=== PATIENT | female | born 1960 | race Caucasian/White ===

== ENCOUNTER → 2017-03-23 13:28 | Outpatient (CLI) | payer OTHER, SELFPAY ==
--- NOTE | 2017-03-23 13:32 | MM_ITS ---
MM Dig SC mamm implant BI CAD CAD Screening COMPARISON: Digital outside mammograms 01/03/2015 and 03/18/2016 from [place], [place] INDICATION: There is no personal or family history of breast cancer. TECHNIQUE: Standard CC and MLO images were obtained. R2 CAD reviewed. FINDINGS: Standard MLO and CC views were obtained along with Fredrick views. The bilateral breast implants are again noted with no evidence of leakage. Prominent diffuse fibroglandular densities are seen in the [place] breast tissue bilaterally. There is arterial calcification in each breast. There is a stable benign-appearing density deep within the right breast. There is no suspicious lesion and there are no suspicious microcalcifications. IMPRESSION: Stable exam with no suspicious lesion seen BI-RADS Category: 2 Benign Finding(s) RECOMMENDED FOLLOW-UP: 1YR - 1 YEAR FOLLOW-UP (A letter has been sent to the patient regarding results of the study.)
== END ==
PROVIDERS: PCP Family Medicine; Visit Provider Nurse Practitioner Obstetrics & Gynecology
DX: Z12.31 Encounter for screening mammogram for malignant neoplasm of breast (principal)
CPT/HCPCS: 77067

== ENCOUNTER → 2017-05-25 08:56 | Outpatient (CLI) | payer OTHER, SELFPAY ==
--- NOTE | 2017-05-25 08:58 | XR_ITS ---
Left foot Weightbearing Foot 3 Views HISTORY: Medial foot pain ORDERING PHYSICIAN: Cecille Crawford DPM PATIENT AGE: 57 years COMPARISON: None FINDINGS: There are minimal hypertrophic changes along the dorsal aspect of the foot. There is a small calcaneal spur at 8 mm. There are mild hypertrophic changes at the base and lateral aspect of the first metatarsal. No fracture or dislocation. No lytic or blastic change. There is normal mineralization.. The joint spaces are well-preserved. No erosive changes are evident. IMPRESSION: Mild degenerative changes with spurring as described above otherwise negative
--- NOTE | 2017-05-25 08:58 | XR_ITS ---
Right foot: Weightbearing Foot 3 Views HISTORY: Pain ORDERING PHYSICIAN: Cecille Crawford DPM PATIENT AGE: 57 years COMPARISON: None FINDINGS: Normal alignment. Mild hypertrophic changes are present at the first metatarsotarsal joint and second metatarsal portable joint as well as along the dorsal aspect of the navicular and cuneiforms. No fracture or dislocation. No lytic or blastic change. There is a small calcaneal spur at 8 mm. 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
== END ==
PROVIDERS: Visit Provider Podiatrist
DX: M79.673 Pain in unspecified foot (principal)
CPT/HCPCS: 73630

== ENCOUNTER → 2018-04-14 09:52 | Outpatient (CLI) | payer OTHER, SELFPAY ==
--- NOTE | 2018-04-14 09:55 | MM_ITS ---
MM Dig SC mamm implant BI CAD ORDERING PHYSICIAN : Cesar Hernández MD PATIENT AGE: 58 years GENDER: Female COMPARISON: Outside mammogram studies from [facility] dated November 2013, March 2017, 2014 INDICATION: ITS.REASON: routine sc mammogram bilateral breast implants. No new complaints. No hormones. Noncontributory family history. .: TECHNIQUE: Todd technique utilized. CC & MLO images were obtained of the breast tissue overlying implant, as well as a second set of images including the breast implant. Mammography is inherently limited due to the implants is a could obscure areas of breast R2 CAD reviewed. images were obtained. R2 CAD reviewed. FINDINGS: Moderate density breast. Moderate fibroglandular elements most evident distributed towards upper-outer quadrant Deep bilateral breast implants do somewhat inherently decreased sensitivity of mammography but we see no no significant new findings. When compared to multiple previous studies. No suspicious calcifications . Minor areas of density seen today were seen previously and appears stable on from multiple years RIGHT BREAST:No significant new findings. Stable LEFT BREAST: Small 5 mm round density is again seen at the lateral left breast unchanged since 2017 at 2018 outside study. This density is smaller than was seen in 2014 IMPRESSION: ...... Stable bilateral mammogram No new areas of significant concern A stable round 5 mm area density at the lateral left breast.-Compatible with benign cyst which is slightly smaller today vs on a 2014; & stable since 2018 and 2017 BI-RADS Category: 2 Benign Finding(s) RECOMMENDED FOLLOW-UP: 1YR 1 YEAR FOLLOW-UP... (A letter has been sent to the patient regarding results of the study.)
== END ==
PROVIDERS: PCP Nurse Practitioner Obstetrics & Gynecology; Visit Provider Nurse Practitioner Obstetrics & Gynecology
DX: Z12.31 Encounter for screening mammogram for malignant neoplasm of breast (principal)
CPT/HCPCS: 77067

== ENCOUNTER → 2018-07-21 17:55 | Outpatient (CLI) | payer OTHER, SELFPAY | PROVIDERS: Visit Provider Physician Assistant | DX: R30.0 Dysuria (principal) | CPT/HCPCS: 87086 ==

== ENCOUNTER → 2018-07-28 12:10 | Outpatient (CLI) | payer OTHER, SELFPAY ==
[2018-07-28 12:12] LABS: MANUAL DIFFERENTIAL MANUAL DIFFERENTIAL (MANUAL DIFF)
[2018-07-28 12:55] LABS: Basophils # 0.1 K/mm3 (0-0.2); Basophils % 0.9 % (0.1-2.0); Eosinophils # 0.2 K/mm3 (0.0-0.4); Eosinophils % 2.9 % (0.1-12.0); Hematocrit 45.4 % (37.0-47.0); Hemoglobin 14.1 g/dL (12.2-16.2); Lymphocytes # 2.3 K/mm3 (0.7-4.5); Mean Corpuscular Hemoglobin 27.5 pg (27.0-31.2); Mean Corpuscular Volume 88.7 fl (81-99); Monocytes # 0.5 K/mm3 (0.1-1.0); Monocytes % 7.6 % (1.7-9.3); Neutrophils % 50.6 % (37.0-80.0); Platelet Count 387 K/mm3 (142-424); Red Blood Count 5.12 M/mm3 (4.20-5.40); Red Cell Distribution Width 13.4 % (11.5-17.5)
[2018-07-28 13:23] LABS: Alanine Aminotransferase 29 U/L (12-78); Albumin Level 4.1 gm/dL (3.4-5.0); Albumin/Globulin Ratio 1.1 (1.1-1.8); Alkaline Phosphatase 100 U/L (46-116); Anion Gap 11.9 mEq/L (5-15); Aspartate Amino Transferase 22 U/L (15-37); Bilirubin,Total 0.4 mg/dL (0.2-1.0); Blood Urea Nitrogen 20 mg/dL (7-18); Calcium 9.3 mg/dL (8.5-10.1); Carbon Dioxide 29 mmol/L (21.0-32.0); Chloride 106 mmol/L (98-107); Creatinine,Serum 0.68 mg/dL (0.55-1.02); Estimated Glomerular Filt Rate 89 ml/min (>60); GFR (African American) 108 ML/MIN (>60); Globulin 3.6 gm/dl (1.3-3.2); Glucose 99 mg/dL (74-106); Potassium 4.9 mmoL/L (3.5-5.1); Sodium 142 mmol/L (136-145); Total Protein,Serum 7.7 gm/dL (6.4-8.2)
[2018-07-28 15:41] LABS: Eosinophils % 2 % (0-3); Lymphocytes % 36 % (10-50); Monocytes % 8 % (2-9); Neutrophils % 52 % (42-76); Platelet Estimate Normal; RBC Morphology Normal; Total Cells Counted 100
--- NOTE | 2018-07-28 21:00 | CT_ITS ---
CT abdomen pelvis wo/w con CLINICAL INDICATION: Lower abdominal pain with nausea, frequent urination, right flank pain with loss of appetite ITS.REASON: CT w w/o contrast- abdominal pelvic pain ORDERING PHYSICIAN: Addie Harris MD PATIENT AGE: 58 years COMPARISON: 09/22/2015 TECHNIQUE: Axial images obtained without and with contrast with sagittal and coronal reformats. All CT scans at the facility use one or more dose reduction, viz: automated exposure control, ma/kV adjustment per patient size (including targeted exams where dose is matched to indication, i.e. head), or iterative reconstruction technique. PROCEDURE: Oral Contrast: None IV Contrast: 75 mL's Optiray 350. FINDINGS: Lower thorax: Bilateral breast implants are present. There is a small hiatal hernia. There are a few small isodensity' s of the liver, 2 in the left hepatic lobe, one in the caudate lobe, one in the right hepatic lobe just anterior to the right hepatic vein and one in the central aspect of the liver medial to the caudate lobe. The largest areas in the caudate lobe and measures 1 cm. Other isodensity is a smaller. This may be due to cysts. Some of these were present on the previous study but very subtle due to the lack of contrast. The lesion in the caudate lobe was present on the previous exam and is not significantly changed. There are gallstones present. Punctate renal calculi on the left measuring up to 4 mm in the lower pole. There is a 4 mm stone in the distal one third of the right ureter at the pelvic inlet causing mild right-sided obstructive uropathy. The stone is a somewhat irregular contour and is several centimeters above the ureterovesical junction. Prior appendectomy. No intestinal obstruction or free air. There is a bilocular isodensity in the right pelvic region consistent with an ovarian cyst measuring 4 x 2.6 cm.. No cul-de-sac fluid. No focal inflammatory change of the pelvis. No acute bony findings. IMPRESSION: 1. There is a 4 mm somewhat irregular distal ureteral stone on the right is at the pelvic inlet with mild dilatation of the right ureter. 2. Left nephrolithiasis. 3. Cholelithiasis. 4. 4 cm bilocular right ovarian cyst. 5. Multiple small isodensity is of the liver which may be due to cysts and may be confirmed with follow-up.
== END ==
PROVIDERS: PCP Emergency Medicine; Visit Provider Obstetrics & Gynecology
DX: R10.2 Pelvic and perineal pain (principal); R10.9 Unspecified abdominal pain; R39.15 Urgency of urination
CPT/HCPCS: 36415; 74178; 80053; 85007; 85014; 85018; 85048; 85049; 87086; Q9967

== ENCOUNTER 2018-08-03 00:18 | Emergency (ER) | payer OTHER, SELFPAY ==
[2018-08-03 00:41] VITALS: BP 159/93; PULSE 88; RESP 20; TEMP 36.7; O2SAT 99; BMI 30.5
[2018-08-03 00:51] VITALS: BP 126/73; PULSE 80; RESP 12; O2SAT 85
[2018-08-03 00:53] VITALS: O2SAT 95
[2018-08-03 00:54] LABS: Microscopic, Urine URINE MICROSCOPIC (MICROSCOPIC)
[2018-08-03 00:58] LABS: Basophils % 0.3 % (0.1-2.0); Eosinophils # 0.1 K/mm3 (0.0-0.4); Eosinophils % 0.4 % (0.1-12.0); Hematocrit 41.3 % (37.0-47.0); Hemoglobin 12.8 g/dL (12.2-16.2); Lymphocytes # 2.1 K/mm3 (0.7-4.5); Lymphocytes % 16.6 % (10-50); Mean Corpuscular Hemoglobin 26.6 pg (27.0-31.2); Mean Corpuscular Volume 85.8 fl (81-99); Mean Platelet Volume 6.7 fl (7.4-10.4); Monocytes # 0.8 K/mm3 (0.1-1.0); Neutrophils # 9.8 K/mm3 (1.8-7.8); Neutrophils % 76.7 % (37.0-80.0); Platelet Count 399 K/mm3 (142-424); Red Blood Count 4.81 M/mm3 (4.20-5.40); Red Cell Distribution Width 13.3 % (11.5-17.5); White Blood Count 12.8 K/mm3 (4.8-10.8)
[2018-08-03 01:06] LABS: Alanine Aminotransferase 23 U/L (12-78); Albumin/Globulin Ratio 1.1 (1.1-1.8); Alkaline Phosphatase 88 U/L (46-116); Anion Gap 15.4 mEq/L (5-15); Aspartate Amino Transferase 20 U/L (15-37); Bilirubin,Total 0.4 mg/dL (0.2-1.0); Blood Urea Nitrogen 18 mg/dL (7-18); Carbon Dioxide 24 mmol/L (21.0-32.0); Chloride 104 mmol/L (98-107); Creatinine Clearance Estimated 88 mL/min (50-200); Creatinine,Serum 0.89 mg/dL (0.55-1.02); Estimated Glomerular Filt Rate 65 ml/min (>60); GFR (African American) 79 ML/MIN (>60); Globulin 3.7 gm/dl (1.3-3.2); Glucose 149 mg/dL (74-106); Potassium 3.4 mmoL/L (3.5-5.1); Sodium 140 mmol/L (136-145); Total Protein,Serum 7.7 gm/dL (6.4-8.2)
--- NOTE | 2018-08-03 01:12 | PC.NURSE ---
Report give to Russ Espino RN
[2018-08-03 01:13] LABS: Appearance,Urine CLEAR (Clear); Blood, Urine 3+ (Negative); Color,Urine YELLOW (Yellow); Glucose,Urine (UA) Negative (Negative); Ketones,Urine 3+ (Negative); Leukocyte Esterase,Urine TRACE (Negative); Nitrate,Urine Negative (Negative); PH,Urine 6.5 (5.0-8.5); Protein,Urine 2+ (Negative); Specific Gravity, Urine 1.025 (1.005-1.030)
[2018-08-03 01:20] LABS: Bilirubin,Urine Negative (Negative)
[2018-08-03 01:23] LABS: Bacteria,Urine 1+ /lpf; Hyaline Casts,Urine Occasional #/lpf (0); RBC,Urine 20-50 #/hpf (0-3); Squamous Epithelial Cell,Urine Occasional #/hpf (0-5)
[2018-08-03 01:58] VITALS: BP 121/72; PULSE 78; RESP 18; O2SAT 98
--- NOTE | 2018-08-03 03:24 | HMH.EDUROGF ---
ED Disposition Clinical Impression: Renal colic on right side Disposition: Home, Self-Care Condition on Discharge: Good Instructions: Kidney Stones -- Adult Additional Instructions: see urology as planned Prescriptions: Hydromorphone HCl [Dilaudid 2mg tablet] 2 mg PO Q8H #5 tab Referrals: Juan Hernandes MD [Primary Care Provider] - - Critical Care Critical Care Time: No Attestation: On 08/03/18, the high probability of a clinically significant, sudden or life threatening deterioration of the following system(s) required my full and direct attention, intervention and personal management. The time I documented below is in addition to time spent performing reported procedures but includes the following listed in this critical care notation. Medical Decision Making - Medical Records Medical records reviewed: Yes: I reviewed the patient's medical records. - Vicente Inquiry Pt receiving controlled substance: No Vital Signs: 08/03/18 00:41 08/03/18 00:51 08/03/18 00:53 Temperature 98.1 F Temperature Source Oral Pulse Rate [Right Brachial] 88 80 Respiratory Rate 20 12 Blood Pressure [Right Arm] 159/93 H 126/73 Blood Pressure Mean [Right Arm] 115 90 Blood Pressure Source [Right Arm] Automatic Cuff Automatic Cuff Blood Pressure Position [Right Arm] Sitting Sitting 02 Sat by Pulse Oximetry 99 85 L 95 Oxygen Delivery Method Room Air Room Air Nasal Cannula Oxygen Flow Rate (LPM) 2 08/03/18 01:58 Temperature Temperature Source Pulse Rate [Right Brachial] 78 Respiratory Rate 18 Blood Pressure [Right Arm] 121/72 Blood Pressure Mean [Right Arm] 88 Blood Pressure Source [Right Arm] Automatic Cuff Blood Pressure Position [Right Arm] Supine 02 Sat by Pulse Oximetry 98 Oxygen Delivery Method Room Air Oxygen Flow Rate (LPM) - Lab Data Lab results reviewed: Yes: I reviewed the patient's lab results. Lab Results 08/03/18 00:35: Urine Color Yellow, Urine Appearance Clear, Urine pH 6.5, Ur Specific [place] 1.025, Urine Protein 2+, Urine Glucose (UA) Negative, Urine Ketones 3+, Urine Blood 3+, Urine Nitrate Negative, Urine Bilirubin Negative, Urine Urobilinogen 1.0, Ur Leukocyte Esterase Trace, Urine RBC 20-50, Urine WBC 3-5, Ur Squamous Epith Cells Occasional, Urine Bacteria 1+, Hyaline Casts Occasional 08/03/18 00:35: WBC 12.8 H, RBC 4.81, Hgb 12.8, Hct 41.3, MCV 85.8, MCH 26.6 L, MCHC 31.0 L, RDW 13.3, Plt Count 399, MPV 6.7 L, Neut % (Auto) 76.7, Lymph % (Auto) 16.6, [place] % (Auto) 6.0, Eos % (Auto) 0.4, Baso % (Auto) 0.3, Neut # (Auto) 9.8 H, Lymph # (Auto) 2.1, [place] # (Auto) 0.8, Eos # (Auto) 0.1, Baso # (Auto) 0.0 08/03/18 00:35: Sodium 140, Potassium 3.4 L, Chloride 104, Carbon Dioxide 24, Anion Gap 15.4 H, BUN 18, Creatinine 0.89, Estimated Creat Clear 88, Estimated GFR 65, Est GFR ( Amer) 79, Glucose 149 H, Calcium 9.0, Total Bilirubin 0.4, AST 20, ALT 23, Alkaline Phosphatase 88, Total Protein 7.7, Albumin 4.0, Globulin 3.7 H, Albumin/Globulin Ratio 1.1 Result diagrams: 08/03/18 00:35 08/03/18 00:35 Orders (Tests/Meds): ED MEDICATIONS Generic Name Dose Route Start Last Admin Trade Name Freq PRN Reason Stop Dose Admin Sodium Chloride 1,000 mls @ 999 mls/hr 08/03/18 00:45 08/03/18 00:48 Sod Chlor 0.9% 1000ml Bag IV 08/03/18 01:45 999 mls/hr .Q1H1M NAVEED Administration Discontinued Medications Generic Name Dose Route Start Last Admin Trade Name Freq PRN Reason Stop Dose Admin Hydromorphone HCl 0.5 mg 08/03/18 00:45 08/03/18 00:48 Dilaudid 2mg/Ml Syringe IV 08/03/18 00:46 0.5 mg ONCE ONE Administration Ketorolac Tromethamine 30 mg 08/03/18 00:45 08/03/18 00:48 Toradol 30mg/Ml Vial IV 08/03/18 00:46 30 mg ONCE ONE Administration Morphine Sulfate 4 mg 08/03/18 00:45 08/03/18 00:48 Morphine 4mg/Ml Syringe IV 08/03/18 00:46 4 mg ONCE ONE Administration Ondansetron HCl 4 mg 08/03/18 00:45 08/03/18 00:48 Zofran 4mg/2ml Via
--- NOTE | 2018-08-03 03:27 | ED_ITS ---
ED Disposition Clinical Impression: Renal colic on right side Disposition: Home, Self-Care Condition on Discharge: Good Instructions: Kidney Stones -- Adult Additional Instructions: see urology as planned Prescriptions: Hydromorphone HCl [Dilaudid 2mg tablet] 2 mg PO Q8H #5 tab Referrals: Juan Hernandes MD [Primary Care Provider] - - Critical Care Critical Care Time: No Attestation: On 08/03/18, the high probability of a clinically significant, sudden or life threatening deterioration of the following system(s) required my full and direct attention, intervention and personal management. The time I documented below is in addition to time spent performing reported procedures but includes the following listed in this critical care notation. Medical Decision Making - Medical Records Medical records reviewed: Yes: I reviewed the patient's medical records. - Vicente Inquiry Pt receiving controlled substance: No Vital Signs: 08/03/18 00:41 08/03/18 00:51 08/03/18 00:53 Temperature 98.1 F Temperature Source Oral Pulse Rate [Right Brachial] 88 80 Respiratory Rate 20 12 Blood Pressure [Right Arm] 159/93 H 126/73 Blood Pressure Mean [Right Arm] 115 90 Blood Pressure Source [Right Arm] Automatic Cuff Automatic Cuff Blood Pressure Position [Right Arm] Sitting Sitting 02 Sat by Pulse Oximetry 99 85 L 95 Oxygen Delivery Method Room Air Room Air Nasal Cannula Oxygen Flow Rate (LPM) 2 08/03/18 01:58 Temperature Temperature Source Pulse Rate [Right Brachial] 78 Respiratory Rate 18 Blood Pressure [Right Arm] 121/72 Blood Pressure Mean [Right Arm] 88 Blood Pressure Source [Right Arm] Automatic Cuff Blood Pressure Position [Right Arm] Supine 02 Sat by Pulse Oximetry 98 Oxygen Delivery Method Room Air Oxygen Flow Rate (LPM) - Lab Data Lab results reviewed: Yes: I reviewed the patient's lab results. Lab Results 08/03/18 00:35: Urine Color Yellow, Urine Appearance Clear, Urine pH 6.5, Ur Specific [place] 1.025, Urine Protein 2+, Urine Glucose (UA) Negative, Urine Ketones 3+, Urine Blood 3+, Urine Nitrate Negative, Urine Bilirubin Negative, Urine Urobilinogen 1.0, Ur Leukocyte Esterase Trace, Urine RBC 20-50, Urine WBC 3-5, Ur Squamous Epith Cells Occasional, Urine Bacteria 1+, Hyaline Casts Occasional 08/03/18 00:35: WBC 12.8 H, RBC 4.81, Hgb 12.8, Hct 41.3, MCV 85.8, MCH 26.6 L, MCHC 31.0 L, RDW 13.3, Plt Count 399, MPV 6.7 L, Neut % (Auto) 76.7, Lymph % (Auto) 16.6, [place] % (Auto) 6.0, Eos % (Auto) 0.4, Baso % (Auto) 0.3, Neut # (Auto) 9.8 H, Lymph # (Auto) 2.1, [place] # (Auto) 0.8, Eos # (Auto) 0.1, Baso # (Auto) 0.0 08/03/18 00:35: Sodium 140, Potassium 3.4 L, Chloride 104, Carbon Dioxide 24, Anion Gap 15.4 H, BUN 18, Creatinine 0.89, Estimated Creat Clear 88, Estimated GFR 65, Est GFR ( Amer) 79, Glucose 149 H, Calcium 9.0, Total Bilirubin 0.4, AST 20, ALT 23, Alkaline Phosphatase 88, Total Protein 7.7, Albumin 4.0, Globulin 3.7 H, Albumin/Globulin Ratio 1.1 Result diagrams: 08/03/18 00:35 08/03/18 00:35 Orders (Tests/Meds): ED MEDICATIONS Generic Name Dose Route Start Last Admin Trade Name Freq PRN Reason Stop Dose Admin
[2018-08-03 03:50] VITALS: BP 126/64; PULSE 72; RESP 14; TEMP 36.8; O2SAT 98
== END 2018-08-03 03:52 | disposition home or self-care (01) ==
PROVIDERS: Emergency Provider Emergency Medicine; PCP Emergency Medicine
DX: N23 Unspecified renal colic (principal)
CPT/HCPCS: 80053; 81001; 85025; 96365; 96374; 96375; 96376; 99283; J2405

== ENCOUNTER 2018-08-08 22:38 | Observation (INO) ==
[2018-08-08 22:57] LABS: Microscopic, Urine URINE MICROSCOPIC (MICROSCOPIC)
[2018-08-08 22:59] LABS: Basophils % 0.4 % (0.1-2.0); Eosinophils # 0.1 K/mm3 (0.0-0.4); Eosinophils % 1.1 % (0.1-12.0); Hematocrit 47.1 % (37.0-47.0); Hemoglobin 14.4 g/dL (12.2-16.2); Lymphocytes # 1.3 K/mm3 (0.7-4.5); Lymphocytes % 13.7 % (10-50); Mean Corpuscular HGB Conc 30.5 g/dL (31.8-35.4); Mean Corpuscular Volume 91.7 fl (81-99); Mean Platelet Volume 7.2 fl (7.4-10.4); Monocytes # 0.6 K/mm3 (0.1-1.0); Monocytes % 6.4 % (1.7-9.3); Neutrophils # 7.3 K/mm3 (1.8-7.8); Neutrophils % 78.4 % (37.0-80.0); Platelet Count 360 K/mm3 (142-424); Red Blood Count 5.14 M/mm3 (4.20-5.40); Red Cell Distribution Width 13.8 % (11.5-17.5); White Blood Count 9.3 K/mm3 (4.8-10.8)
[2018-08-08 23:00] LABS: Appearance,Urine CLEAR (Clear); Bilirubin,Urine Negative (Negative); Blood, Urine 3+ (Negative); Color,Urine ORANGE (Yellow); Glucose,Urine (UA) Negative (Negative); Ketones,Urine Negative (Negative); PH,Urine 6.5 (5.0-8.5); Protein,Urine TRACE (Negative); Specific Gravity, Urine 1.015 (1.005-1.030)
[2018-08-08 23:02] LABS: Leukocyte Esterase,Urine TRACE (Negative)
[2018-08-08 23:04] LABS: RBC,Urine 50-100 #/hpf (0-3)
[2018-08-08 23:11] LABS: Albumin Level 3.9 gm/dL (3.4-5.0); Anion Gap 16.3 mEq/L (5-15); Bilirubin,Total 0.5 mg/dL (0.2-1.0); Calcium 9.1 mg/dL (8.5-10.1); Total Protein,Serum 7.9 gm/dL (6.4-8.2)
--- NOTE | 2018-08-08 23:15 | Emergency Department Note ---
ED Disposition Clinical Impression: Renal colic on right side UTI (urinary tract infection) Qualifiers: Urinary tract infection type: site unspecified Hematuria presence: without hematuria Qualified Code(s): N39.0 - Urinary tract infection, site not specified Disposition: Admitted as Observation Condition on Discharge: Good - Critical Care Critical Care Time: No Attestation: On 08/08/18, the high probability of a clinically significant, sudden or life threatening deterioration of the following system(s) required my full and direct attention, intervention and personal management. The time I documented below is in addition to time spent performing reported procedures but includes the following listed in this critical care notation. Medical Decision Making - Medical Records Medical records reviewed: Yes: I reviewed the patient's medical records. - Vicente Inquiry Pt receiving controlled substance: No Vital Signs: 08/08/18 22:39 08/08/18 23:11 08/08/18 23:30 Temperature 99.1 F 98.5 F Temperature Source Oral Oral Pulse Rate [Right Radial] 73 62 66 Respiratory Rate 18 15 15 Blood Pressure [Right Arm] 178/92 H 132/82 135/61 Blood Pressure Mean [Right Arm] 120 98 85 Blood Pressure Source [Right Arm] Blood Pressure Position [Right Arm] 02 Sat by Pulse Oximetry 95 93 L 93 L Oxygen Delivery Method Room Air Oxygen Flow Rate (LPM) 08/09/18 00:00 08/09/18 00:13 08/09/18 00:30 Temperature 99.0 F Temperature Source Oral Pulse Rate [Right Radial] 64 59 L 60 Respiratory Rate 15 14 15 Blood Pressure [Right Arm] 142/81 H 128/81 128/81 Blood Pressure Mean [Right Arm] 101 96 96 Blood Pressure Source [Right Arm] Automatic Cuff Blood Pressure Position [Right Arm] Supine 02 Sat by Pulse Oximetry 95 93 L 90 L Oxygen Delivery Method Nasal Cannula Room Air Nasal Cannula Oxygen Flow Rate (LPM) 2 2 08/09/18 00:59 Temperature Temperature Source Pulse Rate [Right Radial] 57 L Respiratory Rate 15 Blood Pressure [Right Arm] 109/72 L Blood Pressure Mean [Right Arm] 84 Blood Pressure Source [Right Arm] Blood Pressure Position [Right Arm] 02 Sat by Pulse Oximetry 96 Oxygen Delivery Method Nasal Cannula Oxygen Flow Rate (LPM) 2 - Lab Data Lab results reviewed: Yes: I reviewed the patient's lab results. Lab Results 08/08/18 22:50: Urine Color [place], Urine Appearance Clear, Urine pH 6.5, Ur Specific [place] 1.015, Urine Protein Trace, Urine Glucose (UA) Negative, Urine Ketones Negative, Urine Blood 3+, Urine Nitrate Positive, Urine Bilirubin Negative, Urine Urobilinogen 1.0, Ur Leukocyte Esterase Trace, Urine RBC 50-100, Urine WBC 10-20 08/08/18 22:50: WBC 9.3, RBC 5.14, Hgb 14.4, Hct 47.1 H, MCV 91.7, MCH 27.9, MCHC 30.5 L, RDW 13.8, Plt Count 360, MPV 7.2 L, Neut % (Auto) 78.4, Lymph % (Auto) 13.7, [place] % (Auto) 6.4, Eos % (Auto) 1.1, Baso % (Auto) 0.4, Neut # (Auto) 7.3, Lymph # (Auto) 1.3, [place] # (Auto) 0.6, Eos # (Auto) 0.1, Baso # (Auto) 0.0 08/08/18 22:50: Sodium 139, Potassium 4.3, Chloride 102, Carbon Dioxide 25, Anion Gap 16.3 H, BUN 13, Creatinine 1.30 H, Estimated Creat Clear 57, Estimated GFR 42 L, Est GFR ( Amer) 51 L, Glucose 100, Calcium 9.1, Total Bilirubin 0.5, AST 27, ALT 27, Alkaline Phosphatase 88, Total Protein 7.9, Albumin 3.9, Gl obulin 4.0 H, Albumin/Globulin Ratio 1.0 L, Amylase 53, Lipase 108 08/08/18 22:50: Lactate 1.0 Result diagrams: 08/08/18 22:50 08/08/18 22:50 Orders (Tests/Meds): ED MEDICATIONS Generic Name Dose Route Start Last Admin Trade Name Freq PRN Reason Stop Dose Admin Sodium Chloride 1,000 mls @ 999 mls/hr 08/08/18 23:00 08/08/18 22:51 Sod Chlor 0.9% 1000ml Bag IV 08/09/18 00:00 999 mls/hr .Q1H1M NAVEED Administration Ioversol 75 ml 08/08/18 23:41 08/08/18 23:42 Rad-Optiray 350 100ml Vial IV 08/08/18 23:42 75 ml ONCE ONE Administration Protocol Sodium Chloride 10 ml 08/08/18 23:41 08/08/18 23:42 Rad-Saline Flush 10ml Syringe IV 08/08/18 23:42 10 ml ONCE ONE Administration Discontinued Medications Generic Name Dose Route Start Last Admin Trade Name Demi PRN Reason Stop Dose Admin Hydromorphone HCl 1 mg 08/08/18 23:12 08/08/18 23:19 Dilaudid 2mg/Ml Syringe IV 08/08/18 23:13 1 mg ONCE ONE Administration Ceftriaxone Sodium 1 gm/ 50 mls @ 100 mls/hr 08/09/18 00:00 08/09/18 00:03 Sodium Chloride IV 08/09/18 00:29 100 mls/hr ONCE ONE Administration Protocol Ondansetron HCl 4 mg 08/08/18 22:46 08/08/18 22:51 Zofran 4mg/2ml Vial IV 08/08/18 22:47 4 mg ONCE ONE Administration Ondansetron HCl 4 mg 08/08/18 23:12 08/09/18 00:02 Zofran 4mg/2ml Vial IV 08/08/18 23:13 Not Given ONCE ONE ORDERS Category Date Time Status CT abdomen pelvis w con Stat Cat Scan 08/08/18 22:51 Taken Blood Culture Stat Micro 08/08/18 22:52 Received Urine Culture Stat Micro 08/08/18 22:50 Received - CT Data CT Scan: Abdomen, Pelvis Time Received: 00:[address] Reviewed: Yes: I have viewed the radiologist's interpretation Preliminary Findings: Abnormal Nausea/Vomiting/Diarrhea HPI - General Chief complaint: Abdominal Pain Stated complaint: abdominal pain Time Seen by Provider: 08/08/18 22:55 Mode of Arrival: EMS Source of Information: Patient, Spouse, EMS, Medical Record Limitations: No Limitations Description of Symptoms (Recalled from ER Triage Doc. by RN): pt had right kidney stone surgery on by dr hinton. pt removed stent wednesday morning as directed by dr hinton. since removal patient is having severe right flank and right abdominal pain, nausea/vomiting. - History of Present Illness HPI Narrative: pt with rt sided renal colic with hx of kidney stone and removal last and stent removed on wednesday and since then inc pain and nausea despite pain meds at home - no fever or gross hematuria complaint: nausea, abdominal pain Onset (ago): day(s) Associated Abdominal Pain: Yes Location of pain: flank Severity: severe Quality: sharp Consistency: colicky Associated symptoms: denies other symptoms - Related Data Home Medications Medication Instructions Recorded Confirmed calcium carbonate 500 mg calcium 500 mg PO BID tab 04/27/17 08/08/18 (1,250 mg) tablet multivitamin,[id number] 1 tab PO DAILY 04/27/17 08/08/18 tablet aspirin 81 mg tablet,delayed 81 mg PO DAILY 05/25/17 08/08/18 release glucosamine sulfate 500 mg tablet 1,000 mg PO DAILY tab 07/28/18 08/08/18 Hydromorphone HCl [Dilaudid 2mg 2 mg PO Q8H 08/08/18 08/08/18 tablet] Allergies Allergy/AdvReac Type Severity Reaction Status Date / Time No Known Allergies Allergy Verified 08/08/18 22:45 [facility] History - Hepatitis A Screen Drug use history?: No High risk sexual behaviors?: No History of sexually transmitted infection?: No Currently employed?: No Childcare worker?: No Do you have indoor plumbing?: Yes Do you have electricity?: Yes Attestation statement:: This patient has been screened for Hepatitis A risk factors. I have reviewed the patient's past medical history: Yes Medical History: Denies:: Cancer, Diabetes Mellitus Type 1, Diabetes Mellitus Type 2, MRSA Other Medical History: Reports: Arthritis Laterality Cases: Bilateral: Tonsillectomy Other Surgeries: Yes: No Previous Surgery, Appendectomy Amputation: No Fractures: No Comment: Breast Implants, tennis elbow surgery - Social History Smoking Status: Never smoker Alcohol Intake: current Alcohol Intake Frequency:: holidays/special occasions only Substance Use Type: denies use Occupational Status: employed Housing: house Household Members: spouse - Psychiatric History Expresses thoughts of harming self/others: None Suicide Plan Description: No Plan Family Hx:: Cancer Comment: Skin Cancer ROS Obtained: Yes All systems reviewed & no additional complaints - Constitutional Constitutional: Denies fever(s) - Eyes Eyes: Denies change in vision - ENT Ears, Nose, Mouth, and Throat: Denies sore throat - Cardiovascular Cardiovascular: Denies chest pain - Respiratory Respiratory: No cough - Gastrointestinal Gastrointestingal: Reports: nausea. Denies: abdominal pain - Genitourinary Female Genitourinary: Reports as per HPI, Reports flank pain, Denies hematuria - Musculoskeletal Musculoskeletal: Denies joint swelling - Integumentary/Breasts Skin/Breast: Denies rash - Neurologic Neurologic: Denies headache(s), Denies seizure-like activity Physical Exam - General General appearance: alert, in no apparent distress - Head Head exam: normocephalic - Eye Eye exam: Present: PERRL, EOMI. Absent: scleral icterus - ENT ENT exam: Present: mucous membranes dry - Neck Neck exam: Present: trachea midline - Respiratory Respiratory exam: Absent: respiratory distress - Cardiovascular Cardiovascular exam: Present: regular rate - Abdominal Exam Abdominal exam: Present: soft - Extremities Exam Extremities exam: Present: full ROM - Neurological Exam Neurological exam: Present: alert, oriented X3, CN II-XII intact - Psychiatric Psychiatric exam: Present: normal affect - Skin Skin exam: Absent: rash
[2018-08-09 06:02] LABS: Basophils % 0.4 % (0.1-2.0); Eosinophils % 2.5 % (0.1-12.0); Monocytes # 0.5 K/mm3 (0.1-1.0); Red Cell Distribution Width 13.7 % (11.5-17.5)
[2018-08-09 06:09] LABS: Anion Gap 11.1 mEq/L (5-15)
[2018-08-09 06:42] LABS: Eosinophils # 0.1 K/mm3 (0.0-0.4); Hematocrit 39.2 % (37.0-47.0); Lymphocytes # 1.7 K/mm3 (0.7-4.5); Lymphocytes % 29.2 % (10-50); Mean Corpuscular HGB Conc 30.9 g/dL (31.8-35.4); Mean Corpuscular Volume 92.3 fl (81-99); Mean Platelet Volume 7.4 fl (7.4-10.4); Monocytes % 7.9 % (1.7-9.3); Neutrophils # 3.5 K/mm3 (1.8-7.8); Platelet Count 305 K/mm3 (142-424); Red Blood Count 4.25 M/mm3 (4.20-5.40); White Blood Count 5.8 K/mm3 (4.8-10.8)
[2018-08-09 06:59] LABS: Hemoglobin 12.1 g/dL (12.2-16.2)
--- NOTE | 2018-08-09 07:23 | Pharmacy Consult Notes ---
[facility] Pharmacy VTE Monitoring - Patient Demographics Admission date: 08/08/18 Report Date: 08/09/18 Time: 07:23 Allergies/Adverse Reactions: Patient Allergies No Known Allergies Allergy (Verified 08/08/18 22:45) Height: 1.63 m Weight: 78.698 kg Patient Problems: Current Active Problems (Updated 08/09/18 @ 01:13 by Juan Hernandes MD) Renal colic on right side (Acute) UTI (urinary tract infection) (Acute) - VTE Risk Labs: VTE Related Lab Results Hgb 12.1 g/dL (12.2-16.2) L D 08/09/18 05:38 Hct 39.2 % (37.0-47.0) 08/09/18 05:38 Plt Count 305 K/mm3 (142-424) 08/09/18 05:38 BUN 12 mg/dL (7-18) 08/09/18 05:38 Creatinine 1.16 mg/dL (0.55-1.02) H 08/09/18 05:38 Estimated Creat Clear 66 mL/min (50-200) 08/09/18 05:38 VTE Score: 4 VTE Risk Level: Low Risk - Prophylaxis VTE Prophylaxis Ordered?: Yes Types of VTE Prophylaxis: TEDS Knee High Location of Applied Device: Bilateral Lower Extremeties - VTE Diagnosis Confirmed Treatment or plan recommended: Continue Current Treatment
--- NOTE | 2018-08-09 11:32 | Consult Report ---
*Admission Date: 08/08/18 *Reason for consult:: Right renal colic with intractable nausea and emesis *History of present illness: Patient is known to me from right ureteroscopy and laser of distal right uretera l stone last week 5 days ago. She removed her stent 3 days postop and did well for a few hours but then developed significant right flank pain nausea and emesis. She spoke with me yesterday afternoon and her pain was persistent. Her ureter had been cleared ureteroscopically. This was a routine ureteroscopic intervention without significant difficulty. Was into the emergency room due to persistence of her pain and tractable nausea and emesis. CT scan was obtained which revealed grossly hydronephrotic right ureter down to the ureterovesical junction. She had no stone material present but did have obvious edema in the right lateral bladder wall. Her pain is much improved this morning. She now rates it a 2 out of 10. Her flank pain actually has relieved. She still has some mild pelvic pressure. He has had no further emesis. We briefly discussed consideration of right ureteral stent placement until the edema completely resolves. Considering her level of improvement I suggest observation. She will be discharged home later today. I gave her a prescription for Zofran. She al ready has a prescription for [place] 7.5 mg. She will follow-up with me as previously scheduled. Review of Systems - *Neurologic Denies headache(s), Denies seizure-like activity [facility] History Medical History: Denies:: Cancer, Diabetes Mellitus Type 1, Diabetes Mellitus Type 2, MRSA *Have you ever received a pneumonia vaccine?: No *Have you received a flu vaccine this season?: No Other Medical History: Reports: Arthritis Laterality Cases: Bilateral: Tonsillectomy Other Surgeries: Yes: No Previous Surgery, Appendectomy Amputation: No Fractures: No - *Social History Educational Level: Attended College Smoking Status: Never smoker Alcohol Intake: never Alcohol Intake Frequency:: holidays/special occasions only Substance Use Type: denies use *Occupational Status:: employed Housing: house Household Members: spouse *Travel in the last 8 weeks: None - Psychiatric History Expresses thoughts of harming self/others: None Suicide Plan Description: No Plan Family Hx:: Cancer Meds Home Medications Medication Instructions Recorded Confirmed Type calcium carbonate 500 mg calcium 500 mg PO BID tab 04/27/17 08/08/18 History (1,250 mg) tablet multivitamin,nu-vioi-cwfkjpij 1 tab PO DAILY 04/27/17 08/08/18 History tablet aspirin 81 mg tablet,delayed 81 mg PO DAILY 05/25/17 08/08/18 History release glucosamine sulfate 500 mg tablet 1,000 mg PO DAILY tab 07/28/18 08/08/18 History Hydromorphone HCl [Dilaudid 2mg 2 mg PO Q8H 08/08/18 08/08/18 History tablet] Sulfamethoxazole/Trimethoprim 1 each PO BID 08/09/18 08/09/18 History [Bactrim DS tablet] Tamsulosin HCl [Flomax 0.4mg 0.4 mg PO DAILY 08/09/18 08/09/18 History capsule] Allergies Allergy/AdvReac Type Severity Reaction Status Date / Time No Known Allergies Allergy Verified 08/08/18 22:45 Exam Vital signs and Labs for Last 24 Hours: Temp Pulse Resp BP Pulse Ox 97.7 F 55 L 16 120/62 97 08/09/18 08:00 08/09/18 08:00 08/09/18 08:00 08/09/18 08:00 08/09/18 08:00 Laboratory Results - last 24 hr 08/08/18 22:50: Urine Color [place], Urine Appearance Clear, Urine pH 6.5, Ur Specific [place] 1.015, Urine Protein Trace, Urine Glucose (UA) Negative, Urine Ketones Negative, Urine Blood 3+, Urine Nitrate Positive, Urine Bilirubin Negative, Urine Urobilinogen 1.0, Ur Leukocyte Esterase Trace, Urine RBC 50-100, Urine WBC 10-20 08/08/18 22:50: WBC 9.3, RBC 5.14, Hgb 14.4, Hct 47.1 H, MCV 91.7, MCH 27.9, MCHC 30.5 L, RDW 13.8, Plt Count 360, MPV 7.2 L, Neut % (Auto) 78.4, Lymph % (Auto) 13.7, [place] % (Auto) 6.4, Eos % (Auto) 1.1, Baso % (Auto) 0.4, Neut # (Auto) 7.3, Lymph # (Auto) 1.3, [place] # (Auto) 0.6, Eos # (Auto) 0.1, Baso # (Auto) 0.0 08/08/18 22:50: Sodium 139, Potassium 4.3, Chloride 102, Carbon Dioxide 25, Anion Gap 16.3 H, BUN 13, Creatinine 1.30 H, Estimated Creat Clear 57, Estimated GFR 42 L, Est GFR ( Amer) 51 L, Glucose 100, Calcium 9.1, Total Bilirubin 0.5, AST 27, ALT 27, Alkaline Phosphatase 88, Total Protein 7.9, Albumin 3.9, Globulin 4.0 H, Albumin/Globulin Ratio 1.0 L, Amylase 53, Lipase 108 08/08/18 22:50: Lactate 1.0 08/09/18 05:38: Sodium 142, Potassium 5.1, Chloride 108 H, Carbon Dioxide 28, Anion Gap 11.1, BUN 12, Creatinine 1.16 H, Estimated Creat Clear 66, Estimated GFR 48 L, Est GFR ( Amer) 58 L, Glucose 89, Calcium 8.0 L D 08/09/18 05:38: WBC 5.8 D, RBC 4.25, Hgb 12.1 L D, Hct 39.2, MCV 92.3, MCH 28.6, MCHC 30.9 L, RDW 13.7, Plt Count 305, MPV 7.4, Neut % (Auto) 60.0, Lymph % (Auto) 29.2, [place] % (Auto) 7.9, Eos % (Auto) 2.5, Baso % (Auto) 0.4, Neut # (Auto) 3.5, Lymph # (Auto) 1.7, [place] # (Auto) 0.5, Eos # (Auto) 0.1, Baso # (Auto) 0.0 I & O for Last 24 hours: Intake & Output 08/06/18 08/07/18 08/08/18 08/09/18 23:59 23:59 23:59 23:59 Intake Total 1000 / 1000 Output Total 100 / 100 Balance 900 / 900 Weight 77.111 kg 78.698 kg Results - Labs 08/09/18 05:38 08/09/18 05:38 Laboratory Results - last 24 hr 08/08/18 22:50: Urine Color [place], Urine Appearance Clear, Urine pH 6.5, Ur Specific [place] 1.015, Urine Protein Trace, Urine Glucose (UA) Negative, Urine Ketones Negative, Urine Blood 3+, Urine Nitrate Positive, Urine Bilirubin Negative, Urine Urobilinogen 1.0, Ur Leukocyte Esterase Trace, Urine RBC 50-100, Urine WBC 10-20 08/08/18 22:50: WBC 9.3, RBC 5.14, Hgb 14.4, Hct 47.1 H, MCV 91.7, MCH 27.9, MCHC 30.5 L, RDW 13.8, Plt Count 360, MPV 7.2 L, Neut % (Auto) 78.4, Lymph % (Auto) 13.7, [place] % (Auto) 6.4, Eos % (Auto) 1.1, Baso % (Auto) 0.4, Neut # (Auto) 7.3, Lymph # (Auto) 1.3, [place] # (Auto) 0.6, Eos # (Auto) 0.1, Baso # (Auto) 0.0 08/08/18 22:50: Sodium 139, Potassium 4.3, Chloride 102, Carbon Dioxide 25, Anion Gap 16.3 H, BUN 13, Creatinine 1.30 H, Estimated Creat Clear 57, Estimated GFR 42 L, Est GFR ( Amer) 51 L, Glucose 100, Calcium 9.1, Total Bilirubin 0.5, AST 27, ALT 27, Alkaline Phosphatase 88, Total Protein 7.9, Albumin 3.9, Globulin 4.0 H, Albumin/Globulin Ratio 1.0 L, Amylase 53, Lipase 108 08/08/18 22:50: Lactate 1.0 08/09/18 05:38: Sodium 142, Potassium 5.1, Chloride 108 H, Carbon Dioxide 28, Anion Gap 11.1, BUN 12, Creatinine 1.16 H, Estimated Creat Clear 66, Estimated GFR 48 L, Est GFR ( Amer) 58 L, Glucose 89, Calcium 8.0 L D 08/09/18 05:38: WBC 5.8 D, RBC 4.25, Hgb 12.1 L D, Hct 39.2, MCV 92.3, MCH 28.6, MCHC 30.9 L, RDW 13.7, Plt Count 305, MPV 7.4, Neut % (Auto) 60.0, Lymph % (Auto) 29.2, [place] % (Auto) 7.9, Eos % (Auto) 2.5, Baso % (Auto) 0.4, Neut # (Auto) 3.5, Lymph # (Auto) 1.7, [place] # (Auto) 0.5, Eos # (Auto) 0.1, Baso # (Auto) 0.0
--- NOTE | 2018-08-09 11:39 | Operative Note ---
Date of procedure: 08/09/18 Pre-op Diagnosis:: Right flank pain Post-op Diagnosis:: Right flank pain with moderate ureteritis Procedure performed:: Cystoscopy with bilateral retrograde pyelograms, right diagnostic ureteroscopy and fluoroscopy less than 1 hour Surgeon:: Wero Beard MD MEDICAL IMAGING TECHNOLOGIST:: Jhony Meneses Anesthesia: LMA Estimated blood loss (mL): 0 Clinical Note:: Patient recently had left urostomy and treatment of ureteral stone. She recently was seen and is now having pain on the right side. Radiographic studies did not reveal a ureteral stone. Due to persistence of her pain and pressure which she presents today for cystoscopy for further evaluation. Operative findings:: Mild bullous edema of the right ureter Operative note:: After satisfactory general anesthesia she was placed in the lithotomy position. The genital area was prepped and draped in normal fashion. 22 [place] cystoscopy sheath was introduced with the 30 degree lens. The bladder was inspected entirely for 30 and 70 degree lenses. She had some mild squamous metaplasia of the trigone near the bladder neck but also a few isolated lesions suggestive of inflammation. Retrograde pyelography was performed. The right ureter seemed to take a slight angulation slide #J hooking at the ureterovesical junction. Course and caliber. Normal. There is no filling defects. Left side was completely unremarkable. Course and contour of the ureter and collecting system were lately normal. I tried to advance the 5 [place] open-ended ureteral catheter through this area on the right side. This was unsuccessful and I elected to perform diagnostic ureteroscopy for further clarity. Is a smoker. I then removed the cystoscope and introduced a semirigid ureteroscope into the bladder in this area and the ureter was easily traversed. Require placing a 0.035's zip wire through the ureteroscope in order to straighten it out. There is no luminal filling defects. The ureter itself was not easily accommodating but then above the iliac vessels she had several sporadic bullous lesions similar to her bladder. This was nonobstructing. I was easily able to advance the scope all the way to the renal pelvis. Scope was removed. There is no significant trauma and I elected not to place a stent. She was converted back to the supine position and transferred to the postop area stable extubated. She is placed on cefuroxime 500 mg twice daily for 3 weeks. She will follow-up with me in 1 month. Condition: stable Disposition: PACU Complications:: none
[2018-08-09 11:40] VITALS: BP 120/69
--- NOTE | 2018-08-09 12:19 | H&P/Discharge Summary ---
General - General Admission date:: 08/09/18 Discharge date: 08/09/18 *Admission Date: 08/08/18 *Chief complaint: R Flank Pain Nause and Vomiting *History of present illness: pt with rt sided renal colic with hx of kidney stone and removal last and stent removed on wednesday and since then inc pain and nausea despite pain meds at home - no fever or gross hematuria (Per Dr. Hernandes) [facility] History I have reviewed the patient's past medical history: Yes Medical History: Denies:: Cancer, Diabetes Mellitus Type 1, Diabetes Mellitus Type 2, MRSA *Have you ever received a pneumonia vaccine?: No *Have you received a flu vaccine this season?: No Other Medical History: Reports: Arthritis Laterality Cases: Bilateral: Tonsillectomy Other Surgeries: Yes: No Previous Surgery, Appendectomy Amputation: No Fractures: No - *Social History Educational Level: Attended College Smoking Status: Never smoker Alcohol Intake: never Alcohol Intake Frequency:: holidays/special occasions only Substance Use Type: denies use *Occupational Status:: employed Housing: house Household Members: spouse *Travel in the last 8 weeks: None - Psychiatric History Expresses thoughts of harming self/others: None Suicide Plan Description: No Plan Family Hx:: Cancer Review of Systems - Review of Systems Review of systems:: pertinent systems reviewed and negative unless documented below - Constitutional Denies anorexia, Denies lack of energy - Eyes Denies blind spots, Denies double vision - ENT Denies abnormal hearing, Denies ear pain, Denies pain with swallowing - *Cardiovascular Denies chest pain - *Gastrointestinal Denies coffee ground vomit, Denies constipation - *Genitourinary Denies blood in urine - *Musculoskeletal Denies joint pain, Denies neck pain - Integumentary/Breasts Denies new lesions, Denies skin ulcer - *Neurologic Denies headache(s), Denies seizure-like activity - Psychiatric Denies thoughts of hurting/killing others - Endocrine Denies cold intolerance, Denies heat intolerance - Allergic/Immunologic Denies lip swelling, Denies throat swelling Exam Vital signs and Labs for Last 24 Hours: Temp Pulse Resp BP Pulse Ox 98.4 F 57 L 17 120/69 99 08/09/18 11:39 08/09/18 11:39 08/09/18 11:39 08/09/18 11:39 08/09/18 11:39 Laboratory Results - last 24 hr 08/08/18 22:50: Urine Color [place], Urine Appearance Clear, Urine pH 6.5, Ur Specific [place] 1.015, Urine Protein Trace, Urine Glucose (UA) Negative, Urine Ketones Negative, Urine Blood 3+, Urine Nitrate Positive, Urine Bilirubin Negative, Urine Urobilinogen 1.0, Ur Leukocyte Esterase Trace, Urine RBC 50-100, Urine WBC 10-20 08/08/18 22:50: WBC 9.3, RBC 5.14, Hgb 14.4, Hct 47.1 H, MCV 91.7, MCH 27.9, MCHC 30.5 L, RDW 13.8, Plt Count 360, MPV 7.2 L, Neut % (Auto) 78.4, Lymph % (Auto) 13.7, [place] % (Auto) 6.4, Eos % (Auto) 1.1, Baso % (Auto) 0.4, Neut # (Auto) 7.3, Lymph # (Auto) 1.3, [place] # (Auto) 0.6, Eos # (Auto) 0.1, Baso # (Auto) 0.0 08/08/18 22:50: Sodium 139, Potassium 4.3, Chloride 102, Carbon Dioxide 25, Anion Gap 16.3 H, BUN 13, Creatinine 1.30 H, Estimated Creat Clear 57, Estimated GFR 42 L, Est GFR ( Amer) 51 L, Glucose 100, Calcium 9.1, Total Bilirubin 0.5, AST 27, ALT 27, Alkaline Phosphatase 88, Total Protein 7.9, Albumin 3.9, Globulin 4.0 H, Albumin/Globulin Ratio 1.0 L, Amylase 53, Lipase 108 08/08/18 22:50: Lactate 1.0 08/09/18 05:38: Sodium 142, Potassium 5.1, Chloride 108 H, Carbon Dioxide 28, Anion Gap 11.1, BUN 12, Creatinine 1.16 H, Estimated Creat Clear 66, Estimated GFR 48 L, Est GFR ( Amer) 58 L, Glucose 89, Calcium 8.0 L D 08/09/18 05:38: WBC 5.8 D, RBC 4.25, Hgb 12.1 L D, Hct 39.2, MCV 92.3, MCH 28.6, MCHC 30.9 L, RDW 13.7, Plt Count 305, MPV 7.4, Neut % (Auto) 60.0, Lymph % (Auto) 29.2, [place] % (Auto) 7.9, Eos % (Auto) 2.5, Baso % (Auto) 0.4, Neut # (Auto) 3.5, Lymph # (Auto) 1.7, [place] # (Auto) 0.5, Eos # (Auto) 0.1, Baso # (Auto) 0.0 I & O for Last 24 hours: Intake & Output 08/06/18 08/07/18 08/08/18 08/09/18 23:59 23:59 23:59 23:59 Intake Total 1000 / 1000 Output Total 300 / 300 Balance 700 / 700 Weight 170 lb 173 lb 8 oz - Constitutional no acute distress - *Routine HEENT Exam Head: Present: normocephalic. Absent: tenderness of temporal artery Eye: Present: EOMI, PERRL, normal accommodation. Absent: conjunctival icterus ENT: Present: mucous membranes dry. Absent: sinus tenderness - *Routine Neck Exam Present: supple, full ROM. Absent: tracheal deviation - *Routine Respiratory Exam Present: CTA bilaterally. Absent: accessory muscle use, respiratory distress - *Routine Cardiovascular Exam Present: RRR - *Routine Abdominal Exam Present: soft, normoactive bowel sounds. Absent: tenderness, firm - *Routine Extremities Exam Present: full ROM, pulses intact. Absent: cyanosis - Routine Back/Spine/Pelvis Exam Back/Spine: Present: full ROM. Absent: vertebral tenderness - *Routine Skin Exam Present: intact. Absent: cyanosis - *Routine Neurological Exam Present: alert, oriented X3, CN II-XII intact. Absent: hemineglect, tremors - Routine Psychiatric Exam Present: normal affect, normal thought process. Absent: visual hallucinations, tactile hallucinations Hospital Course Hospital Course: 58-year-old female patient presented to the ER with rt sided renal colic with hx of kidney stone and removal last and stent removed on wednesday and since then inc pain and nausea despite pain meds at home - no fever or gross hematuria. She did receive of ceftriaxone 1 g IV, hydromorphone 1 mg IV, and 1 dose of famotidine 20 mg IV, with no further C/O pain. Abd/Pelvis CT 08/09/2018 IMPRESSION: Stent removal with residual hydroureter and hydronephrosis on the right side. 11 mm hyperdensity near the right UVJ which could be a small urinary bladder wall hematoma. Dictated By: Robert Ragsdale MD Blood cultures x2 and urine culture are still pending Urology has seen and has the following recommendations: -I gave her a prescription for Zofran. She already has a prescription for [place] 7.5 mg. -She will follow-up with me in 1 month. (Per Dr. Beard) She will be discharged today home with urology's recommendations. She will follow-up with her with urology in 1 month and follow-up with her primary care in 1 to 2 weeks, she is agreeable to this and says she is ready to go. Results Labs on day of discharge: Labs from last 24 hours 08/09/18 08/09/18 08/08/18 05:38 05:38 22:50 WBC 5.8 D RBC 4.25 Hgb 12.1 L D Hct 39.2 MCV 92.3 MCH 28.6 MCHC 30.9 L RDW 13.7 Plt Count 305 MPV 7.4 Neut % (Auto) 60.0 Lymph % (Auto) 29.2 [place] % (Auto) 7.9 Eos % (Auto) 2.5 Baso % (Auto) 0.4 Neut # (Auto) 3.5 Lymph # (Auto) 1.7 [place] # (Auto) 0.5 Eos # (Auto) 0.1 Baso # (Auto) 0.0 Sodium 142 Potassium 5.1 Chloride 108 H Carbon Dioxide 28 Anion Gap 11.1 BUN 12 Creatinine 1.16 H Estimated Creat Clear 66 Estimated GFR 48 L Est GFR ( Amer) 58 L Glucose 89 Lactate 1.0 Calcium 8.0 L D Total Bilirubin AST ALT Alkaline Phosphatase Total Protein Albumin Globulin Albumin/Globulin Ratio Amylase Lipase Urine Color Urine Appearance Urine pH Ur Specific Luke Urine Protein Urine Glucose (UA) Urine Ketones Urine Blood Urine Nitrate Urine Bilirubin Urine Urobilinogen Ur Leukocyte Esterase Urine RBC Urine WBC 08/08/18 08/08/18 08/08/18 22:50 22:50 22:50 WBC 9.3 RBC 5.14 Hgb 14.4 Hct 47.1 H MCV 91.7 MCH 27.9 MCHC 30.5 L RDW 13.8 Plt Count 360 MPV 7.2 L Neut % (Auto) 78.4 Lymph % (Auto) 13.7 [place] % (Auto) 6.4 Eos % (Auto) 1.1 Baso % (Auto) 0.4 Neut # (Auto) 7.3 Lymph # (Auto) 1.3 [place] # (Auto) 0.6 Eos # (Auto) 0.1 Baso # (Auto) 0.0 Sodium 139 Potassium 4.3 Chloride 102 Carbon Dioxide 25 Anion Gap 16.3 H BUN 13 Creatinine 1.30 H Estimated Creat Clear 57 Estimated GFR 42 L Est GFR ( Amer) 51 L Glucose 100 Lactate Calcium 9.1 Total Bilirubin 0.5 AST 27 ALT 27 Alkaline Phosphatase 88 Total Protein 7.9 Albumin 3.9 Globulin 4.0 H Albumin/Globulin Ratio 1.0 L Amylase 53 Lipase 108 Urine Color [place] Urine Appearance Clear Urine pH 6.5 Ur Specific [place] 1.015 Urine Protein Trace Urine Glucose (UA) Negative Urine Ketones Negative Urine Blood 3+ Urine Nitrate Positive Urine Bilirubin Negative Urine Urobilinogen 1.0 Ur Leukocyte Esterase Trace Urine RBC 50-100 Urine WBC 10-20 - Additional Comments Rounded with Dr. Hernandes all orders per Dr. Hernandes DS: Diagnosis - Discharge Diagnosis (1) Renal colic on right side Status: Acute (2) Vomiting Status: Acute (3) Nausea Status: Acute Discharge Plan - Patient Discharge Instructions ACTIVITY: Continue current activity DIET: continue same diet Patient Instructions: Urinary Tract Infection, Kidney Stones -- Adult, Kidney Infection, DI for Kidney Infection, DI for Kidney Stones, DI for Urinary Tract Infection (UTI) - Follow up Plan Follow up with: Wero Beard MD [Staff Physician] - 1 month Juan Hernandes MD [Primary Care Provider] - 2 weeks Disposition: Home, Self-Shelter Medications: Home Medications Medication Instructions Recorded Confirmed Type calcium carbonate 500 mg calcium 500 mg PO BID tab 04/27/17 08/08/18 History (1,250 mg) tablet multivitamin,qk-pzcs-lbvddiae 1 tab PO DAILY 04/27/17 08/08/18 History tablet aspirin 81 mg tablet,delayed 81 mg PO DAILY 05/25/17 08/08/18 History release glucosamine sulfate 500 mg tablet 1,000 mg PO DAILY tab 07/28/18 08/08/18 History Tamsulosin HCl [Flomax 0.4mg 0.4 mg PO DAILY 08/09/18 08/09/18 History capsule] Prescriptions/Medication Reconciliation: Continued calcium carbonate 500 mg calcium (1,250 mg) tablet 500 mg PO BID tab aspirin 81 mg tablet,delayed release 81 mg PO DAILY multivitamin,es-usay-hcxbooxy tablet 1 tab PO DAILY glucosamine sulfate 500 mg tablet 1,000 mg PO DAILY tab Tamsulosin HCl [Flomax 0.4mg capsule] 0.4 mg PO DAILY Discontinued Hydromorphone HCl [Dilaudid 2mg tablet] 2 mg PO Q8H Sulfamethoxazole/Trimethoprim [Bactrim DS tablet] 1 each PO BID
== END 2018-08-09 13:56 | disposition home or self-care (01) ==
LOC: 2ND 22:38 → ER 22:38 → 2ND 08-09 01:36
PROVIDERS: ADMIT Emergency Medicine; ATTEND Emergency Medicine
CPT/HCPCS: 36415; 74177; 80048; 80053; 81001; 82150; 83605; 83690; 85025; 87040; 87086; 96365; 96375; 99285; G0378; J2405; Q9967

== ENCOUNTER → 2018-11-07 08:41 | Outpatient (CLI) | payer OTHER, SELFPAY ==
--- NOTE | 2018-11-07 08:46 | XR_ITS ---
PROCEDURE: XR FOOT WT BEARING RT 3V CLINICAL INDICATION: Bialteral foot pain COMPARISON: [id number] XR foot wt bearing LT 3V from 05/25/2017 [id number] XR foot wt bearing RT 3V from 05/25/2017 FINDINGS: No fracture or dislocation. No lytic or blastic change. There is normal mineralization. There are mild degenerative changes of the midfoot. There is pes planus with osteoarthritic change of the talonavicular joint and navicular cuneiform joint Other findings:None. IMPRESSION: Mild osteoarthritic change of the midfoot with pes planus Dictated by: Arnaud Serrano MD 11/07/2018 14:46 Electronically signed by Arnaud Serrano MD in [place] 11/07/2018 14:46
--- NOTE | 2018-11-07 08:46 | XR_ITS ---
PROCEDURE: XR FOOT WT BEARING LT 3V CLINICAL INDICATION: Bilateral foot pain COMPARISON: [id number] XR foot wt bearing LT 3V from 05/25/2017 [id number] XR foot wt bearing RT 3V from 05/25/2017 FINDINGS: No fracture or dislocation. No lytic or blastic change. There is normal mineralization. There are mild osteoarthritic changes of the midfoot with mild pes planus. Bony hypertrophic changes are present at the base and lateral aspect of the 1st metatarsal. There is some minimal lateral offset at the base of the 2nd metatarsal and mid cuneiform. This is of questionable clinical significance. Other findings:None. IMPRESSION: Degenerative changes, overall no significant change from the previous exam. Mild pes planus. Dictated by: Arnaud Serrano MD 11/07/2018 14:48 Electronically signed by Arnaud Serrano MD in [place] 11/07/2018 14:48
== END ==
PROVIDERS: PCP Emergency Medicine; Visit Provider Orthopaedic Surgery
DX: M79.672 Pain in left foot (principal); M79.671 Pain in right foot
CPT/HCPCS: 73630

== ENCOUNTER → 2018-11-14 08:31 | Outpatient (CLI) | payer OTHER, SELFPAY ==
--- NOTE | 2018-11-14 08:42 | MR_ITS ---
PROCEDURE: MR FOOT RT WO/W CON CLINICAL INDICATION: Gray's Neuroma, OA COMPARISON: XR FOOT WT BEARING RT 3V from 11/07/2018 TECHNIQUE: Routine multi-echo multiplanar technique also generalized 16 cc of ProHance contrast. FINDINGS: Alignment and joint spaces are normal except narrowing of the tarsal joint spaces especially between the 2nd cuneiform and proximal 2nd metatarsal bone where there is associated spurring and subchondral cyst formation and irregularity of the cortex. There is also some degenerative reactive marrow type of edema involving the proximal 4th metatarsal bone. The remainder of osseous marrow elements are of normal signal without enhancement. There is some fluid signal surrounding the peroneal longus tendon just distal to the ankle. Along the plantar aspect of the foot there is some enhancement with intermediate central signal within the peroneal longus tendon near the distal insertion site. There are no other areas of abnormal enhancement. Small tibiotalar joint effusion. There are some superficial subcutaneous areas of fluid signal along the medial and lateral soft tissues at the ankle level. IMPRESSION: No acute fracture Osteoarthritic change in the tarsal area especially at the 2nd tarsal/metatarsal joint. Peroneal longus tenosynovitis as discussed above. Mild medial and lateral subcutaneous edema. Remainder of the low signal of the tendons and ligaments appear to be intact. Dictated by: Robert Ragsdale 11/14/2018 11:39 Electronically signed by Robert Ragsdale in [place] 11/14/2018 11:39
[2018-11-14 08:57] LABS: Blood Urea Nitrogen 15 mg/dL (7-18); Creatinine,Serum 0.72 mg/dL (0.55-1.02); Estimated Glomerular Filt Rate 83 ml/min (>60); GFR (African American) 101 ML/MIN (>60)
--- NOTE | 2018-11-14 09:41 | HMH.ITSHM ---
Current Home Medications as stated by this patient Penelope Denis or in store marketing representative. []MULTI VITAMIN CALCIUM BABY ASPIRIN
== END ==
PROVIDERS: PCP Emergency Medicine; Visit Provider Podiatrist
DX: G57.61 Lesion of plantar nerve, right lower limb (principal)
CPT/HCPCS: 36415; 73720; 82565; 84520; A9576

== ENCOUNTER → 2018-12-13 08:07 | Outpatient (POV) | payer OTHER, SELFPAY | PROVIDERS: Visit Provider Dermatology | DX: Z00.00 Encounter for general adult medical examination without abnormal findings (principal) ==

== ENCOUNTER → 2019-04-20 10:15 | Outpatient (CLI) | payer OTHER, SELFPAY ==
--- NOTE | 2019-04-20 10:16 | MM_ITS ---
PROCEDURE: MM DIG MAMM DX BI IMPLANT CAD Digital Breast Tomosynthesis Included CLINICAL INDICATION: screening xmg There is a history of breast cancer patient's sister diagnosed at age 62 the patient has bilateral breast implants. COMPARISON: AB MAMM SCREEN BILAT DIG PNL from 12/01/2013 AB MAMM SCREEN BILAT DIG PNL from 01/03/2015 MAMMO SCREENING DIGITAL TOMOSYNTHESIS BILATERAL W CAD from 03/18/2016 SCIMPBI MM Dig SC mamm implant BI CAD from 03/23/2017 DIG MAMM-SCREEN CELIA from 04/14/2018 TECHNIQUE: Standard CC and MLO images and 3D Tomosynthesis was obtained. R2 CAD reviewed. Additional Fredrick views were obtained bilaterally. FINDINGS: Moderate somewhat heterogenic fibroglandular densities are seen in the [place] breast tissue. The implants appear intact with no evidence of leakage. James images were reviewed showing no suspicious lesion in either breast. There are no suspicious microcalcifications. There is a benign-appearing calcification right breast. IMPRESSION: Stable exam with no suspicious lesions seen BI-RAD Category: 2 Benign Finding(s) FOLLOW-UP: 1YR 1 Year Follow-up (A letter has been sent to the patient regarding results of the study.) Dictated by: Dr. Vladimir Isidro MD 04/21/2019 14:[address] Vladimir Isidro MD in [place] 04/21/2019 14:09
== END ==
PROVIDERS: PCP Emergency Medicine; Visit Provider Nurse Practitioner Obstetrics & Gynecology
DX: Z12.31 Encounter for screening mammogram for malignant neoplasm of breast (principal)
CPT/HCPCS: 77062; 77066; G0279

== ENCOUNTER → 2019-06-26 23:07 | Outpatient (CLI) | payer OTHER, SELFPAY ==
[2019-06-26 23:48] LABS: Microscopic, Urine URINE MICROSCOPIC (MICROSCOPIC)
[2019-06-26 23:56] LABS: Appearance,Urine CLEAR (Clear); Basophils # 0.1 K/mm3 (0-0.2); Basophils % 0.5 % (0.1-2.0); Bilirubin,Urine Negative (Negative); Blood, Urine Negative (Negative); Color,Urine YELLOW (Yellow); Eosinophils # 0.2 K/mm3 (0.0-0.4); Eosinophils % 1.8 % (0.1-12.0); Glucose,Urine (UA) Negative (Negative); Hematocrit 39.6 % (37.0-47.0); Hemoglobin 12.7 g/dL (12.2-16.2); Ketones,Urine TRACE (Negative); Leukocyte Esterase,Urine Negative (Negative); Lymphocytes # 3.6 K/mm3 (0.7-4.5); Mean Corpuscular Hemoglobin 27.7 pg (27.0-31.2); Mean Corpuscular Volume 86.6 fl (81-99); Monocytes # 0.7 K/mm3 (0.1-1.0); Monocytes % 6.5 % (1.7-9.3); Neutrophils # 6.1 K/mm3 (1.8-7.8); Neutrophils % 57.2 % (37.0-80.0); Nitrate,Urine Negative (Negative); Platelet Count 438 K/mm3 (142-424); Protein,Urine Negative (Negative); Red Blood Count 4.57 M/mm3 (4.20-5.40); Red Cell Distribution Width 13.9 % (11.5-17.5); Specific Gravity, Urine 1.025 (1.005-1.030); Urobilinogen,Urine 0.2 EU/dl (0.2); White Blood Count 10.7 K/mm3 (4.8-10.8)
--- NOTE | 2019-06-26 23:56 | CT_ITS ---
PROCEDURE: CT ABDOMEN PELVIS WO CON CLINICAL INDICATION: RIGHT SIDED LOWER ABD PAIN Right lower quadrant pain, history kidney stones COMPARISON: ABDPELW CT abdomen pelvis w con from 08/08/2018 TECHNIQUE: Axial images obtained with sagittal and coronal reformats. All CT scans at the facility use one or more dose reduction, viz: automated exposure control, ma/kV adjustment per patient size (including targeted exams where dose is matched to indication, i.e. head), or iterative reconstruction technique. FINDINGS: LOWER THORAX: There are bilateral breast prosthesis ABDOMEN & PELVIS: Present. The liver, spleen, adrenal glands, and pancreas have an unremarkable appearance. There is a small calcific density in the fundus of the gallbladder suggesting a small stone. There are nonobstructing left renal calculi with a 5 mm stone in the upper pole and a 4 mm stone in the lower pole. There is mild right hydronephrosis and hydroureter. A definite ureteral stone however is not identified. Hydronephrosis and hydroureter is less so than when compared to the previous exam of 08/08/2018. No definite stone evident in the urinary bladder. The previous CT scan of 08/08/2018 demonstrated thickening in the right aspect the urinary bladder. This is not demonstrated on today's exam however, the study was performed without contrast. There is minimal protrusion of the inferior bladder wall into the vaginal region. There has been a prior appendectomy. No intestinal obstruction or free air. No evidence of diverticulitis. There is a small left inguinal hernia containing fat. Small nodes are present in the inguinal regions. Minimal dextroscoliosis of the lumbar spine IMPRESSION: 1. Mild right hydronephrosis and hydroureter without obvious ureteral stone. This could be related to recently passed stone. The right renal collecting system dilatation has improved somewhat from 08/08/2018. The right-sided urinary bladder wall thickening noted on the recent exam is not identified on today's study. 2. Left nephrolithiasis. 3. Cholelithiasis. 4. Small area protrusion of the urinary bladder into the vaginal area Dictated by: Arnaud Serrano MD 06/27/2019 08:09 Electronically signed by Arnaud Serrano MD in [place] 06/27/2019 08:09
[2019-06-27 00:11] LABS: Bacteria,Urine 1+ /lpf; Calcium Oxalate Crystals,Urine 1+ /lpf; Mucus,Urine 1+ /lpf
[2019-06-27 00:21] LABS: Chloride 102 mmol/L (98-107); Potassium 3.7 mmoL/L (3.5-5.1); Sodium 137 mmol/L (136-145)
[2019-06-27 00:23] LABS: Alanine Aminotransferase 21 U/L (12-78); Aspartate Amino Transferase 34 U/L (14-36); Blood Urea Nitrogen 18 mg/dl (7-17); Estimated Glomerular Filt Rate 86 ml/min (>60); GFR (African American) 104 ML/MIN (>60)
[2019-06-27 00:24] LABS: Albumin Level 4.8 g/dl (3.5-5.0); Albumin/Globulin Ratio 1.5 (1.1-1.8); Alkaline Phosphatase 94 U/L (38-126); Anion Gap 9.7 mEq/L (5-15); Bilirubin,Total 0.3 mg/dl (0.2-1.3); Calcium 9.6 mg/dl (8.4-10.2); Carbon Dioxide 29 mmol/L (22.0-30.0); Globulin 3.3 g/dL (1.3-3.2); Glucose 119 mg/dl (74-100); Total Protein,Serum 8.1 g/dl (6.3-8.2)
== END ==
PROVIDERS: PCP Emergency Medicine; Visit Provider Emergency Medicine
DX: R10.31 Right lower quadrant pain (principal)
CPT/HCPCS: 36415; 74176; 80053; 81001; 85025

== ENCOUNTER → 2019-07-03 07:53 | Outpatient (CLI) | payer OTHER, SELFPAY ==
--- NOTE | 2019-07-03 07:53 | US_ITS ---
PROCEDURE: US ABDOMEN LIMITED CLINICAL INDICATION: RUQ Pain, N V Right upper quadrant pain, nausea, COMPARISON: CT ABDOMEN PELVIS WO CON from 06/26/2019 FINDINGS: PANCREAS: Unremarkable. No obvious mass or abnormal fluid collection. No ductal dilatation LIVER: No focal liver lesions demonstrated. Homogeneous echogenicity. No intrahepatic biliary ductal dilatation evident. There is appropriate direction of blood flow within a non dilated portal vein RIGHT KIDNEY: Unremarkable. Normal size and echogenicity. No hydronephrosis GALLBLADDER: Gallstones are present. No gallbladder wall thickening, pericholecystic fluid, or biliary dilatation is evident. IMPRESSION: Cholelithiasis Dictated by: Arnaud Serrano MD 07/03/2019 12:11 Electronically signed by Arnaud Serrano MD in [facility] 07/03/2019 12:11
== END ==
PROVIDERS: PCP Emergency Medicine; Visit Provider Physician Assistant
DX: R10.11 Right upper quadrant pain (principal)
CPT/HCPCS: 76705

== ENCOUNTER → 2019-07-18 11:13 | Outpatient (CLI) | payer OTHER, SELFPAY | PROVIDERS: Visit Provider Nurse Practitioner Obstetrics & Gynecology | DX: Z01.419 Encounter for gynecological examination (general) (routine) without abnormal findings (principal) ==

== ENCOUNTER → 2019-07-18 11:24 | Outpatient (CLI) | payer OTHER, SELFPAY ==
[2019-07-18 12:14] LABS: Basophils % 0.5 % (0.1-2.0); Eosinophils # 0.1 K/mm3 (0.0-0.4); Eosinophils % 2.3 % (0.1-12.0); Hematocrit 43.9 % (37.0-47.0); Hemoglobin 13.8 g/dL (12.2-16.2); Lymphocytes # 2.1 K/mm3 (0.7-4.5); Lymphocytes % 35.4 % (10-50); Mean Corpuscular HGB Conc 31.4 g/dL (31.8-35.4); Mean Corpuscular Hemoglobin 29.1 pg (27.0-31.2); Mean Corpuscular Volume 92.7 fl (81-99); Mean Platelet Volume 7.3 fl (7.4-10.4); Monocytes # 0.4 K/mm3 (0.1-1.0); Monocytes % 6.4 % (1.7-9.3); Neutrophils # 3.3 K/mm3 (1.8-7.8); Neutrophils % 55.4 % (37.0-80.0); Platelet Count 355 K/mm3 (142-424); Red Blood Count 4.74 M/mm3 (4.20-5.40); Red Cell Distribution Width 13.8 % (11.5-17.5)
[2019-07-18 13:34] LABS: Chol/HDL Ratio 2.4 (1-3.5); Cholesterol 184 mg/dl (140-200); HDL Cholesterol 78 mg/dl (40-60); Triglycerides 102 mg/dl (30-150); VLDL Cholesterol 20 mg/dL (0-40)
[2019-07-18 13:35] LABS: Alanine Aminotransferase 20 U/L (12-78); Albumin Level 4.8 g/dl (3.5-5.0); Albumin/Globulin Ratio 1.7 (1.1-1.8); Alkaline Phosphatase 82 U/L (38-126); Anion Gap 9.9 mEq/L (5-15); Aspartate Amino Transferase 32 U/L (14-36); Bilirubin,Total 0.4 mg/dl (0.2-1.3); Blood Urea Nitrogen 19 mg/dl (7-17); Calcium 10.3 mg/dl (8.4-10.2); Carbon Dioxide 31 mmol/L (22.0-30.0); Chloride 104 mmol/L (98-107); Estimated Glomerular Filt Rate 73 ml/min (>60); GFR (African American) 89 ML/MIN (>60); Globulin 2.9 g/dL (1.3-3.2); Glucose 93 mg/dl (74-100); Potassium 4.9 mmoL/L (3.5-5.1); Sodium 140 mmol/L (136-145); Total Protein,Serum 7.7 g/dl (6.3-8.2)
[2019-07-18 13:51] LABS: Direct LDL Cholesterol 91.51 mg/dL (100-129)
[2019-07-18 13:52] LABS: Coronavirus 19 IgG Antibody Negative (Negative); Coronavirus 19 IgM Antibody Negative (Negative)
== END ==
PROVIDERS: Nurse Practitioner Obstetrics & Gynecology; Visit Provider Surgery
DX: Z01.818 Encounter for other preprocedural examination (principal); K80.20 Calculus of gallbladder without cholecystitis without obstruction
CPT/HCPCS: 80053; 80061; 85025; 86328

== ENCOUNTER 2019-07-19 06:06 | Day surgery (SDC) | payer OTHER, SELFPAY ==
--- NOTE | 2019-07-17 11:57 | SUR.PREOP ---
07/17/2019 @ 4259--PHONE CALL MADE TO PATIENT. PATIENT UNDERSTANDS THAT LAB WORK AND COVID TESTING NEEDS TO BE COMPLETED @ 1130 ON 07/18/2019. PATIENT UNDERSTANDS IF LAB WORK AND COVID-19 TESTS ARE NOT COMPLETED BY 12PM ON THAT DATE, THE SURGERY SCHEDULED WILL BE CANCELLED AND RESCHEDULED FOR ANOTHER TIME.
[2019-07-19] VITALS (15 sets, daily range): BP systolic 120–142; BP diastolic 60–85; PULSE 55–87; RESP 12–25; TEMP 36.4–43; O2SAT 92–99
--- NOTE | 2019-07-19 07:39 | P.PN_ITS ---
[facility] Anesthesia Checklist - Structural Data Admitted From: Home Planned Operative Procedure/s: sharona farre Consent for Planned Operative Procedure(s) Verified: Yes - Additional verifications Anesthesia Reactions: No Hx Blood Transfusions: No Blood Transfusion Reaction: No - Airway Assessment C-Spine Mobility Assessed: Yes TMJ Mobility Assessed: Yes Dentition: Good Dentition - Neurological Assessment Level of Consciousness: Awake, Alert, Appropriate - Anesthesia Plan Anesthesia Risk discussed: Yes Anesthesia Plan: Verified ASA Class: I Anesthesia Type: General [facility] History I have reviewed the patient's past medical history: Yes Medical History: Reports:: Lung Disease, Kidney Stones Denies:: Cancer, Diabetes Mellitus Type 1, Diabetes Mellitus Type 2, Internal Pacemaker, MRSA, Seizures *Have you ever received a pneumonia vaccine?: No *Have you received a flu vaccine this season?: No Other Medical History: Reports: Arthritis, Other. Denies: Blood Transfusion Reaction Anesthesia experience/problems:: none Laterality Cases: Bilateral: Tonsillectomy Other Surgeries: Yes: No Previous Surgery, Appendectomy. No: Pacemaker Amputation: No Fractures: No - *Social History Educational Level: Completed College Smoking Status: Never smoker Alcohol Intake: never Alcohol Intake Frequency:: other Substance Use Type: denies use *Occupational Status:: employed Housing: house Household Members: spouse *Travel in the last 8 weeks: None Family Hx:: Unable to obtain
--- NOTE | 2019-07-19 08:22 | P.OP_ITS ---
Date of procedure: 07/19/19 Pre-op Diagnosis:: Symptomatic gallstones Post-op Diagnosis:: Same Procedure performed:: Laparoscopic cholecystectomy Surgeon:: Artie Billy MD ASSEMBLER BRAZER:: Ryan Phillips Anesthesia: GETA Estimated blood loss (mL): 20 Clinical Note:: Patient is a 59-year-old female from [place] referred by Dr. Hernandes's office for gallstones. 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 Patient states that recently she has had some appreciable pain in the right upper quadrant with radiation around to her back. She has had associated nausea. This been ongoing for about 3 to 4 weeks. She characterizes it as a squeezing type of pain. She states that she has progression of symptoms and nausea after eating 4-5 bites of food. She underwent gallbladder ultrasound which reveals cholelithiasis without gallbladder wall thickening or common duct dilatation. Operative findings:: She had some fatty infiltration of the liver. She had a thickened gallbladder. There were multiple small gallstones. Operative note:: Patient was taken the operating room. She was given preoperative intravenous antibiotics. In the operating room she was placed in a supine position. General anesthesia was induced via endotracheal tube. Abdomen was prepped and draped in the standard surgical fashion. Subumbilical skin incision was made and while performing abdominal wall lift Veress needle was inserted. CO2 pneumoperitoneum was achieved to 15 mmHg. 11 mm optical trocar was inserted at the umbilicus. Intraperitoneal contents were visualized. She was noted to have fatty infiltration the liver. She was positioned in reverse Trendelenburg and left side down. A couple of 5 mm trochars were inserted in the right upper abdomen. 10 mm trocar was inserted in the epigastrium. Gallbladder was grasped and retracted anteriorly over the dome of the liver. Infundibulum of the gallbladder was retracted anterior laterally. Blunt dissection was carried out at the neck of the gallbladder bluntly incising the visceral peritoneum. Dissection was carried out ultimately clearly identifying the cystic duct and cystic artery. Cystic duct was multiply clipped and divided. Cystic artery was carefully coagulated with LIZZY ultrasonic harmonic anastacio. Gallbladder was dissected free from the liver in a retrograde fashion using LIZZY ultrasonic harmonic anastacio. There is some minimal unavoidable spillage of bile during the dissection process which was immediately suctioned free. Gallbladder was placed within an Endo Catch retrieval device and removed from the peritoneal cavity via the umbilical trocar site. Gallbladder fossa and perihepatic space were thoroughly irrigated and aspirated until clear. There was good hemostasis. Trochars were removed as CO2 pneumoperitoneum was evacuated. Fascia at the umbilicus was closed with 0 Vicryl suture. Local anesthetic was infiltrated. Skin incisions were closed with 4-0 Monocryl. Steri-Strips and dressings were applied. Condition: stable Disposition: PACU Specimens:: Gallbladder and contents Complications:: None immediately apparent
--- NOTE | 2019-07-19 08:29 | P.PN_ITS ---
[facility] Anesthesia Record Part I Intake, IV Amount: 1,500 Estimated blood loss (mL): 0 Urine output (mL): 0 Blood Pressure: 140/82 SaO2: 96 Pulse Rate: 87 Respiratory Rate: 12 Temperature: 97.5 F Patient is:: Awake, Stable Stable to PACU at:: 08:25
[2019-07-20 10:20] VITALS: BP 135/83; PULSE 82; TEMP 36.4
--- NOTE | 2019-07-20 10:20 | P.PN_ITS ---
[facility] Anesthesia Record Part II Discharge Time: 09:13 Destination: Surgical Day Care (OP Surgery) PACU nurse assessment reviewed?: Yes Patient Condition:: Good Anesthesia Complications:: None Swallowing reflex intact?: Yes Cyanosis?: No Blood Pressure: 135/83 Pulse Rate: 82 Temperature: 97.5 F Mental Status: Alert & Oriented Pain level:: 0 Nausea and/or vomitting:: None Intake, IV Amount: 0
== END 2019-07-19 10:15 | disposition home or self-care (01) ==
LOC: OR 06:07
PROVIDERS: PCP Emergency Medicine; Visit Provider Surgery
PROC: 0FT44ZZ Resection of Gallbladder, Percutaneous Endoscopic Approach (ICD-10-PCS; CPT 47562; principal; 2019-07-19 07:30)
DX: K80.20 Calculus of gallbladder without cholecystitis without obstruction (principal); K76.0 Fatty (change of) liver, not elsewhere classified; Z87.442 Personal history of urinary calculi; M19.90 Unspecified osteoarthritis, unspecified site; Z90.89 Acquired absence of other organs; Z98.82 Breast implant status; Z87.39 Personal history of other diseases of the musculoskeletal system and connective tissue; Z79.82 Long term (current) use of aspirin; J98.4 Other disorders of lung; Z80.8 Family history of malignant neoplasm of other organs or systems
CPT/HCPCS: 47562; 96374; J2405; J2710

== ENCOUNTER 2019-09-28 14:16 | Emergency (ER) | payer OTHER, SELFPAY ==
[2019-09-28 15:53] VITALS: BP 142/97; PULSE 71; RESP 19; TEMP 36.7; O2SAT 98; BMI 28.3
--- NOTE | 2019-09-28 16:03 | HMH.EDUTC ---
[facility] [place] Clinical Impression: URI (upper respiratory infection) Qualifiers: URI type: unspecified URI Qualified Code(s): J06.9 - Acute upper respiratory infection, unspecified Disposition: Home, Self-Care Condition on Discharge: Good Instructions: Sinusitis, DI for Allergic Rhinitis, Fluticasone Nasal [place] Additional Instructions: *Monitor Temp, Over the counter Motrin or Tylenol as directed/as needed Tylenol every 4 hours and Motrin every 6 hours (as long as your family doctor has told you that you can take it) for fever or pain. and straight to ER if unable to lower temp less than 101.0 after medication given *Warm salt water gargles may help to soothe the throat *Throat Lozenges *Warm fluids like tea with honey may help to soothe the throat *Sleep elevated *Humidifier/Vaporizer *Flonase 2 sprays in each nostril daily but be aware that it may take 2-3 days before you notice improvement *Make sure that you are drinking plenty of fluids Return if needed Straight to ER if any life threatening symptoms Follow up IMMEDIATELY for new or worsening symptoms or no Noticeable improvement over the next 48-72 hours. 911 for difficulty breathing or swallowing Prescriptions: Fluticasone Propionate [Flonase 50mcg nasal spray 16gm] 1 - 2 spr NS DAILY #1 bottle Transmission Status: Pending to [facility] Referrals: Juan Hernandes MD [Primary Care Provider] - As needed Time of Disposition: 16:07 Medical Decision Making - Vicente Inquiry Pt receiving controlled substance: No Vicente was queried for this patient: No Vital Signs: 09/28/19 15:53 Temperature 98.1 F Temperature Source Oral Pulse Rate [Right Brachial] 71 Respiratory Rate 19 Blood Pressure [Right Arm] 142/97 H Blood Pressure Mean [Right Arm] 112 Blood Pressure Source [Right Arm] Automatic Cuff Blood Pressure Position [Right Arm] Sitting 02 Sat by Pulse Oximetry 98 Oxygen Delivery Method Room Air Orders (Tests/Meds): ED MEDICATIONS Discontinued Medications Generic Name Dose Route Start Last Admin Trade Name Freq PRN Reason Stop Dose Admin Ceftriaxone Sodium 1 gm 09/28/19 15:56 Rocephin 1gm Vial IM 09/28/19 15:57 ONCE ONE Protocol Lidocaine HCl 0 ml 09/28/19 15:56 Lidocaine 1% 10ml Mdv IM 09/28/19 15:57 ONCE ONE Methylprednisolone Sodium Succinate 125 mg 09/28/19 15:56 Solu-Medrol 125mg/2ml Vial IM 09/28/19 15:57 ONCE ONE [facility] H[place] - General Stated complaint: sinus Time Seen by Provider: 09/28/19 16:03 Mode of Arrival: Ambulatory Source of Information: Patient Limitations: No Limitations Description of Symptoms (Recalled from Triage Doc. by RN): PATIENT C/O SINUS INFECTION X 1 WEEK HEENT Symptoms (Recalled from RN notes): Yes Resp Symptoms (Recalled from RN notes): No Skin Symptoms (Recalled from RN notes): No MS Symptoms (Recalled from RN notes): No Functional Status (Recalled from RN notes): WNL - History of Present Illness Provider Complaint: Patient states that she thinks she may have a sinus infection States that she has been having sinus congestion and drainage for over a week States that today she was still having symptoms so she come in to get checked to see if she could get something to help clear up her sinuses - Related Data Home Medications Medication Instructions Recorded Confirmed calcium carbonate 500 mg calcium 500 mg PO BID tab 04/27/17 08/11/19 (1,250 mg) tablet multivitamin,qy-[id number] 1 tab PO DAILY 04/27/17 08/11/19 aspirin 81 mg tablet,delayed 81 mg PO DAILY 05/25/17 08/11/19 release vit C 250 mg-E 200 unit-zinc 40 1 tab PO BID 12/08/18 08/11/19 mg-copper 1 et-gnpokm-vlhaeq capsule Vit A/Vit C/Vit E/Zinc/Copper 2 each PO DAILY 07/19/19 08/11/19 [Preservision Areds Softgel] Previous Rx's Medication Instructions Recorded Fluticasone Propionate [Flonase 1 - 2 spr NS DAILY #1 bottle 09/28/19 50mcg nasal spray 16gm]
[2019-09-28 16:09] VITALS: BP 142/97; PULSE 71; RESP 19; TEMP 36.7; O2SAT 98
== END 2019-09-28 16:12 | disposition home or self-care (01) ==
PROVIDERS: Emergency Provider Nurse Practitioner; PCP Emergency Medicine
DX: J06.9 Acute upper respiratory infection, unspecified (principal); Z87.442 Personal history of urinary calculi; Z90.49 Acquired absence of other specified parts of digestive tract; Z90.09 Acquired absence of other part of head and neck
CPT/HCPCS: 96372; 99201

== ENCOUNTER → 2019-10-03 13:18 | Outpatient (POV) | payer OTHER, SELFPAY | PROVIDERS: Visit Provider Dermatology | DX: Z00.00 Encounter for general adult medical examination without abnormal findings (principal) ==

== ENCOUNTER → 2020-01-01 12:50 | Outpatient (CLI) | payer OTHER, SELFPAY ==
--- NOTE | 2020-01-01 12:56 | XR_ITS ---
PROCEDURE: XR KNEE RT 4V CLINICAL INDICATION: Rt knee pain COMPARISON: No exams were available for comparison FINDINGS: No fracture or dislocation. No lytic or blastic change. There is normal mineralization. There are mild osteoarthritic changes of the patellofemoral joint. There is some spurring at the intercondylar region of the femur and the tibial spine area.. Other findings:None. IMPRESSION: Mild osteoarthritis Dictated by: Arnaud Serrano MD 01/01/2020 16:14 Arnaud Serrano MD in [place] 01/01/2020 16:14
== END ==
PROVIDERS: PCP Emergency Medicine; Visit Provider Orthopaedic Surgery
DX: M25.561 Pain in right knee (principal)
CPT/HCPCS: 73564

== ENCOUNTER 2020-02-13 08:59 | Emergency (ER) | payer OTHER, SELFPAY ==
[2020-02-13 09:22] VITALS: BP 138/87; PULSE 75; RESP 19; TEMP 37.3; O2SAT 99; BMI 28.3
--- NOTE | 2020-02-13 09:27 | HMH.EDUTC ---
[facility] [place] Clinical Impression: Viral syndrome Disposition: Home, Self-Care Condition on Discharge: Good Instructions: DI for Viral Syndrome, Preventing the Spread of Coronavirus Discharge Instructions Additional Instructions: Drink plenty of fluids. Take tylenol for pain or fever. Take the medications as directed. Follow up with your regular doctor. GO TO THE ER FOR ANY WORSENING SYMPTOMS Prescriptions: Ondansetron [Zofran 4mg ODT] 4 mg PO Q8HP PRN #12 tab.rapdis PRN Reason: Nausea Transmission Status: Received by [employer] Referrals: Juan Hernandes MD [Primary Care Provider] - Time of Disposition: 10:19 Medical Decision Making - Medical Records Medical records reviewed: No: I reviewed the patient's medical records. - Vicente Inquiry Pt receiving controlled substance: No Vital Signs: 02/13/20 09:22 02/13/20 09:31 Temperature 99.1 F 99.1 F Temperature Source Oral Pulse Rate 75 Pulse Rate [Left] 75 Respiratory Rate 19 19 Blood Pressure 138/87 Blood Pressure [Right Arm] 138/87 Blood Pressure Mean [Right Arm] 104 Blood Pressure Source [Right Arm] Automatic Cuff Blood Pressure Position [Right Arm] Sitting 02 Sat by Pulse Oximetry 99 Oxygen Delivery Method Room Air - Lab Data Lab Results 02/13/20 09:11: Influenza Type A Ag Negative, Influenza Type B Ag Negative 02/13/20 09:50: WBC 6.3, RBC 4.86, Hgb 14.3, Hct 46.1, MCV 94.8, MCH 29.5, MCHC 31.1 L, RDW 13.7, Plt Count 367, MPV 7.2 L, Neut % (Auto) 60.7, Lymph % (Auto) 30.8, [place] % (Auto) 6.0, Eos % (Auto) 1.9, Baso % (Auto) 0.6, Neut # (Auto) 3.8, Lymph # (Auto) 1.9, [place] # (Auto) 0.4, Eos # (Auto) 0.1, Baso # (Auto) 0.0 02/13/20 09:50: Sodium 140, Potassium 3.9, Chloride 104, Carbon Dioxide 30, Anion Gap 9.9, BUN 20 H, Creatinine 0.70, Estimated Creat Clear 101, Estimated GFR 85, Est GFR ( Amer) 103, Glucose 136 H, Calcium 9.2, Total Bilirubin 0.4, AST 34, ALT 22, Alkaline Phosphatase 84, Total Protein 7.8, Albumin 4.4, Globulin 3.4 H, Albumin/Globulin Ratio 1.3, Amylase 109 02/13/20 09:50: Lipase 152 Result diagrams: 02/13/20 09:50 02/13/20 09:50 Orders (Tests/Meds): ORDERS Category Date Time Status Covid-19 Nasal PCR Sendout P&C Stat Lab 02/13/20 09:22 Ordered [facility] [place] HPI - General Stated complaint: nausea Time Seen by Provider: 02/13/20 09:28 Mode of Arrival: Ambulatory Source of Information: Patient Limitations: No Limitations Description of Symptoms (Recalled from Triage Doc. by RN): Nausea, body aches, chills HEENT Symptoms (Recalled from RN notes): No Resp Symptoms (Recalled from RN notes): No Skin Symptoms (Recalled from RN notes): No MS Symptoms (Recalled from RN notes): Yes Functional Status (Recalled from RN notes): wnl - History of Present Illness Provider Complaint: She c/o of feeling nauseated on and off for the past 2 weeks. She denies any abdominal pain. 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 - Related Data Home Medications Medication Instructions Recorded Confirmed calcium carbonate 500 mg calcium 500 mg PO BID tab 04/27/17 02/13/20 (1,250 mg) tablet multivitamin,ho-epnh-ofpdyfed 1 tab PO DAILY 04/27/17 02/13/20 Previous Rx's Medication Instructions Recorded Ondansetron [Zofran 4mg ODT] 4 mg PO Q8HP PRN #12 tab.rapdis 02/13/20 Allergies Allergy/AdvReac Type Severity Reaction Status Date / Time No Known Allergies Allergy Verified 02/13/20 09:29 - Worker's Comp Is this a Worker's Comp case?: No Is this an [facility] Worker's Comp?: No Is this a [facility] Worker's Comp?: No [facility] History - Hepatitis A Screen Drug use history?: No High risk sexual behaviors?: No History of sexually transmitted infection?: No Currently employed?: No Childcare worker?: No Do you have indoor plumbing?: No Do you have electricity?: No Attestation statement:: This patient has been screened for Hepatit
[2020-02-13 09:31] VITALS: BP 138/87; PULSE 75; RESP 19; TEMP 37.3; O2SAT 99
[2020-02-13 10:08] LABS: Basophils % 0.6 % (0.1-2.0); Eosinophils # 0.1 K/mm3 (0.0-0.4); Eosinophils % 1.9 % (0.1-12.0); Hematocrit 46.1 % (37.0-47.0); Hemoglobin 14.3 g/dL (12.2-16.2); Lymphocytes # 1.9 K/mm3 (0.7-4.5); Lymphocytes % 30.8 % (10-50); Mean Corpuscular HGB Conc 31.1 g/dL (31.8-35.4); Mean Corpuscular Hemoglobin 29.5 pg (27.0-31.2); Mean Corpuscular Volume 94.8 fl (81-99); Mean Platelet Volume 7.2 fl (7.4-10.4); Monocytes # 0.4 K/mm3 (0.1-1.0); Neutrophils # 3.8 K/mm3 (1.8-7.8); Neutrophils % 60.7 % (37.0-80.0); Platelet Count 367 K/mm3 (142-424); Red Blood Count 4.86 M/mm3 (4.20-5.40); Red Cell Distribution Width 13.7 % (11.5-17.5); White Blood Count 6.3 K/mm3 (4.8-10.8)
[2020-02-13 10:09] LABS: Chloride 104 mmol/L (98-107); Potassium 3.9 mmoL/L (3.5-5.1); Sodium 140 mmol/L (136-145)
[2020-02-13 10:11] LABS: Amylase 109 U/L (30-110)
[2020-02-13 10:12] LABS: Alanine Aminotransferase 22 U/L (12-78); Albumin Level 4.4 g/dl (3.5-5.0); Albumin/Globulin Ratio 1.3 (1.1-1.8); Alkaline Phosphatase 84 U/L (38-126); Anion Gap 9.9 mEq/L (5-15); Aspartate Amino Transferase 34 U/L (14-36); Bilirubin,Total 0.4 mg/dl (0.2-1.3); Blood Urea Nitrogen 20 mg/dl (7-17); Calcium 9.2 mg/dl (8.4-10.2); Carbon Dioxide 30 mmol/L (22.0-30.0); Creatinine Clearance Estimated 101 mL/min (50-200); Estimated Glomerular Filt Rate 85 ml/min (>60); GFR (African American) 103 ML/MIN (>60); Globulin 3.4 g/dL (1.3-3.2); Glucose 136 mg/dl (74-100); Total Protein,Serum 7.8 g/dl (6.3-8.2)
[2020-02-13 12:01] LABS: Lipase 152 U/L (23-300)
[2020-02-13 12:10] LABS: UTC Influenza A Antigen Negative (Negative); UTC Influenza B Antigen Negative (Negative)
[2020-02-14 10:31] LABS: Covid-19 Nasal PCR Sendout P&C Negative
== END 2020-02-13 10:22 | disposition home or self-care (01) ==
PROVIDERS: Emergency Provider Nurse Practitioner Family; PCP Emergency Medicine
DX: Z20.828 Contact with and (suspected) exposure to other viral communicable diseases (principal); B34.9 Viral infection, unspecified
CPT/HCPCS: 80053; 82150; 83690; 85025; 87804; 99202; U0004

== ENCOUNTER 2020-02-19 12:41 | Emergency (ER) | payer OTHER, SELFPAY ==
[2020-02-19 12:42] VITALS: BP 148/96; PULSE 98; RESP 20; TEMP 36.8; O2SAT 98; BMI 27.4
--- NOTE | 2020-02-19 12:54 | CT_ITS ---
PROCEDURE: CT ABDOMEN PELVIS WO CON CLINICAL INDICATION: pain Right upper quadrant pain and nausea COMPARISON: CT CT ABDOMEN PELVIS WO CON from 06/26/2019 TECHNIQUE: Axial images obtained with sagittal and coronal reformats. All CT scans at the facility use one or more dose reduction, viz: automated exposure control, ma/kV adjustment per patient size (including targeted exams where dose is matched to indication, i.e. head), or iterative reconstruction technique. FINDINGS: LOWER THORAX: There are bilateral breast implants in place ABDOMEN & PELVIS: Prior cholecystectomy. The liver, spleen, adrenal glands, and pancreas have an unremarkable appearance. There are several left renal calculi the largest in the lower pole at 4 mm. No hydronephrosis. No ureteral calculi. Scattered small lymph nodes are present in the mesenteries and portal region. No intestinal obstruction or free air. There is given history prior appendectomy. There is a mild amount of retained colonic feces. There are small bilateral inguinal hernias containing fat. No acute bony findings. This cyst is this IMPRESSION: 1. Nonobstructing left renal stones. 2. Mild amount of retained colonic feces. 3. Small bilateral inguinal hernias containing fat. 4. No acute finding. Dictated by: Arnaud Serrano MD 02/19/2020 14:20 Arnaud Serrano MD in [place] 02/19/2020 14:20
--- NOTE | 2020-02-19 13:09 | HMH.EDNVD ---
ED Disposition Clinical Impression: Flank pain, acute, Sphincter of Oddi dysfunction UTI (urinary tract infection) Qualifiers: Urinary tract infection type: site unspecified Hematuria presence: without hematuria Qualified Code(s): N39.0 - Urinary tract infection, site not specified Disposition: Home, Self-Care Condition on Discharge: Good Instructions: DI for Acute Abdominal Pain Additional Instructions: call pcp for consult with gi and culture results Prescriptions: Dicyclomine HCl [Bentyl 10mg capsule] 10 mg PO TID #21 cap Transmission Status: Pending to [facility] levoFLOXacin [Levaquin 500mg tab] 500 mg PO DAILY #7 tab Transmission Status: Pending to [facility] Referrals: Juan Hernandes MD [Primary Care Provider] - Raul Aranda MD [Staff Physician] - - Critical Care Critical Care Time: No Attestation: On , the high probability of a clinically significant, sudden or life threatening deterioration of the following system(s) required my full and direct attention, intervention and personal management. The time I documented below is in addition to time spent performing reported procedures but includes the following listed in this critical care notation. Medical Decision Making - Medical Records Medical records reviewed: Yes: I reviewed the patient's medical records. - Vicente Inquiry Pt receiving controlled substance: No Vital Signs: 02/19/20 12:42 02/19/20 13:42 Temperature 98.3 F Temperature Source Oral Pulse Rate [Left Radial] 98 H 67 Respiratory Rate 20 20 Blood Pressure [Right Arm] 148/96 H 134/85 Blood Pressure Mean [Right Arm] 113 101 Blood Pressure Source [Right Arm] Automatic Cuff Blood Pressure Position [Right Arm] Supine 02 Sat by Pulse Oximetry 98 96 Oxygen Delivery Method Room Air Room Air - Lab Data Lab results reviewed: Yes: I reviewed the patient's lab results. Lab Results 02/19/20 12:55: WBC 8.1, RBC 5.28, Hgb 15.4, Hct 48.6 H, MCV 91.9, MCH 29.2, MCHC 31.7 L, RDW 13.7, Plt Count 399, MPV 7.1 L, Neut % (Auto) 56.6, Lymph % (Auto) 32.8, [place] % (Auto) 8.4, Eos % (Auto) 1.5, Baso % (Auto) 0.7, Neut # (Auto) 4.6, Lymph # (Auto) 2.7, [place] # (Auto) 0.7, Eos # (Auto) 0.1, Baso # (Auto) 0.1 02/19/20 12:55: Sodium 140, Potassium 3.5, Chloride 100, Carbon Dioxide 31 H, Anion Gap 12.5, BUN 17, Creatinine 0.80, Estimated Creat Clear 86, Estimated GFR 73, Est GFR ( Amer) 89, Glucose 111 H, Calcium 10.9 H, Total Bilirubin 0.5, AST 35, ALT 21, Alkaline Phosphatase 109, Total Protein 8.9 H, Albumin 4.9, Globulin 4.0 H, Albumin/Globulin Ratio 1.2, Amylase 105 02/19/20 12:55: Lipase 234 02/19/20 14:40: Urine Color Yellow, Urine Appearance Clear, Urine pH 5.5, Ur Specific [place] >= 1.030, Urine Protein Negative, Urine Glucose (UA) Negative, Urine Ketones 1+, Urine Blood Negative, Urine Nitrate Negative, Urine Bilirubin Negative, Urine Urobilinogen 0.2, Ur Leukocyte Esterase 2+ A Result diagrams: 02/19/20 12:55 02/19/20 12:55 Orders (Tests/Meds): ED MEDICATIONS Discontinued Medications Generic Name Dose Route Start Last Admin Trade Name Filiq PRN Reason Stop Dose Admin Sodium Chloride 1,000 mls @ 999 mls/hr 02/19/20 13:00 02/19/20 13:05 Sod Chlor 0.9% 1000ml Bag IV 02/19/20 14:00 999 mls/hr .Q1H1M NAVEED Administration Ketorolac Tromethamine 30 mg 02/19/20 12:55 02/19/20 13:05 Ketorolac 30mg/Ml Vial IV 02/19/20 12:56 30 mg ONCE ONE Administration Ondansetron HCl 4 mg 02/19/20 12:55 02/19/20 13:04 Ondansetron 4mg/2ml Vial IV 02/19/20 12:56 4 mg ONCE ONE Administration ORDERS Category Date Time Status Urinalysis and Microscopic Stat Lab 02/19/20 14:40 Results Urine Culture Stat Micro 02/19/20 14:40 Received - CT Data CT Scan: Abdomen, Pelvis Time Received: 14:[address] Reviewed: Yes: I have viewed the radiologist's interpretation Preliminary Findings: Abnormal (see report ) Medical Decision Narrat
[2020-02-19 13:19] LABS: Basophils # 0.1 K/mm3 (0-0.2); Basophils % 0.7 % (0.1-2.0); Eosinophils # 0.1 K/mm3 (0.0-0.4); Eosinophils % 1.5 % (0.1-12.0); Hematocrit 48.6 % (37.0-47.0); Hemoglobin 15.4 g/dL (12.2-16.2); Lymphocytes # 2.7 K/mm3 (0.7-4.5); Lymphocytes % 32.8 % (10-50); Mean Corpuscular HGB Conc 31.7 g/dL (31.8-35.4); Mean Corpuscular Hemoglobin 29.2 pg (27.0-31.2); Mean Corpuscular Volume 91.9 fl (81-99); Mean Platelet Volume 7.1 fl (7.4-10.4); Monocytes # 0.7 K/mm3 (0.1-1.0); Monocytes % 8.4 % (1.7-9.3); Neutrophils # 4.6 K/mm3 (1.8-7.8); Neutrophils % 56.6 % (37.0-80.0); Platelet Count 399 K/mm3 (142-424); Red Blood Count 5.28 M/mm3 (4.20-5.40); Red Cell Distribution Width 13.7 % (11.5-17.5); White Blood Count 8.1 K/mm3 (4.8-10.8)
[2020-02-19 13:24] LABS: Alanine Aminotransferase 21 U/L (12-78); Albumin Level 4.9 g/dl (3.5-5.0); Albumin/Globulin Ratio 1.2 (1.1-1.8); Alkaline Phosphatase 109 U/L (38-126); Amylase 105 U/L (30-110); Anion Gap 12.5 mEq/L (5-15); Aspartate Amino Transferase 35 U/L (14-36); Bilirubin,Total 0.5 mg/dl (0.2-1.3); Blood Urea Nitrogen 17 mg/dl (7-17); Calcium 10.9 mg/dl (8.4-10.2); Carbon Dioxide 31 mmol/L (22.0-30.0); Chloride 100 mmol/L (98-107); Creatinine Clearance Estimated 86 mL/min (50-200); Estimated Glomerular Filt Rate 73 ml/min (>60); GFR (African American) 89 ML/MIN (>60); Glucose 111 mg/dl (74-100); Potassium 3.5 mmoL/L (3.5-5.1); Sodium 140 mmol/L (136-145); Total Protein,Serum 8.9 g/dl (6.3-8.2)
[2020-02-19 13:42] VITALS: BP 134/85; PULSE 67; RESP 20; O2SAT 96
[2020-02-19 13:48] LABS: Lipase 234 U/L (23-300)
[2020-02-19 14:44] LABS: Microscopic, Urine URINE MICROSCOPIC (MICROSCOPIC)
[2020-02-19 14:47] LABS: Appearance,Urine CLEAR (Clear); Bilirubin,Urine Negative (Negative); Blood, Urine Negative (Negative); Color,Urine YELLOW (Yellow); Glucose,Urine (UA) Negative (Negative); Ketones,Urine 1+ (Negative); Leukocyte Esterase,Urine 2+ (Negative); Nitrate,Urine Negative (Negative); PH,Urine 5.5 (5.0-8.5); Protein,Urine Negative (Negative); Specific Gravity, Urine >= 1.030 (1.005-1.030); Urobilinogen,Urine 0.2 EU/dl (0.2)
[2020-02-19 15:50] VITALS: BP 141/80; PULSE 61; RESP 16; TEMP 36.6; O2SAT 98
== END 2020-02-19 15:51 | disposition home or self-care (01) ==
PROVIDERS: Emergency Provider Emergency Medicine; PCP Emergency Medicine
DX: N30.00 Acute cystitis without hematuria (principal); B95.61 Methicillin susceptible Staphylococcus aureus infection as the cause of diseases classified elsewhere; K83.4 Spasm of sphincter of Oddi; Z87.442 Personal history of urinary calculi
CPT/HCPCS: 74176; 80053; 81001; 82150; 83690; 85025; 87086; 87088; 87186; 96374; 96375; 99283; J2405

== ENCOUNTER → 2020-02-23 09:28 | Outpatient (CLI) | payer OTHER, SELFPAY ==
--- NOTE | 2020-02-23 09:33 | MR_ITS ---
PROCEDURE: MR ABDOMEN WO CON MRCP CLINICAL INDICATION: MRCP Right upper quadrant pain with abdominal pain and tenderness. Prior cholecystectomy. Evaluate for common duct stones COMPARISON: CT CT ABDOMEN PELVIS WO CON from 02/19/2020 TECHNIQUE: Routine multiplanar multi echo sequences are performed without gadolinium enhancement. FINDINGS: There has been a prior cholecystectomy. The biliary radicles common hepatic and common bile duct have an unremarkable appearance. No obvious common duct stones are present. There is mild degree of motion artifact. The pancreas has an unremarkable appearance. There is a small cyst in the caudate lobe of the liver centrally measuring approximately 10 mm. The adrenal glands, kidneys, and spleen appear unremarkable. There is mild lumbar curvature convex right. There are bilateral breast implants. IMPRESSION: Prior cholecystectomy. No biliary ductal dilatation or retained common duct stones are evident. Dictated by: Arnaud Serrano MD 02/26/2020 11:19 Arnaud Serrano MD in [place] 02/26/2020 11:19
== END ==
PROVIDERS: PCP Emergency Medicine; Visit Provider Nurse Practitioner Family
DX: R10.11 Right upper quadrant pain (principal); R10.84 Generalized abdominal pain; R11.0 Nausea; K59.00 Constipation, unspecified; R63.0 Anorexia; R19.4 Change in bowel habit
CPT/HCPCS: 74181; 76376

== ENCOUNTER → 2020-02-28 09:58 | Outpatient (CLI) | payer OTHER, SELFPAY ==
[2020-02-28 11:54] LABS: Coronavirus 19 IgG Antibody Positive (Negative); Coronavirus 19 IgM Antibody Negative (Negative)
== END ==
PROVIDERS: Visit Provider Internal Medicine Gastroenterology
DX: Z01.812 Encounter for preprocedural laboratory examination (principal); Z86.16 Personal history of COVID-19
CPT/HCPCS: 36415; 86328

== ENCOUNTER 2020-03-01 09:50 | Day surgery (SDC) | payer OTHER, SELFPAY ==
[2020-02-27 14:28] VITALS: BMI 28.3
[2020-03-01] VITALS (8 sets, daily range): BP systolic 123–150; BP diastolic 79–93; PULSE 70–97; RESP 18; TEMP 36.3–36.4; O2SAT 95–100
--- NOTE | 2020-03-01 10:12 | FL_ITS ---
PROCEDURE: FL ERCP CLINICAL INDICATION: RUQ pain COMPARISON: No exams were available for comparison FINDINGS: Fluoroscopy time: 2 minutes and 12 seconds 4 images are submitted 1 of which shows minimal contrast injection into the pancreatic followed by a small wire within the pancreatic duct. IMPRESSION: Status post ERCP with fluoroscopic guidance Dictated by: Arnaud Serrano MD 03/01/2020 16:29 Arnaud Serrano MD in [place] 03/01/2020 16:29
--- NOTE | 2020-03-01 11:02 | P.PCN_ITS ---
[facility] Procedure Note Procedure Note:: ERCP procedure Report: Endoscopic retrograde cholangiopancreatography with needle-knife sphincterotomy Endoscopist: Raul Aranda II, MD Referring Physician: Juan Hernandes MD Date of Procedure: March 01, 2020 Equipment: Olympus 180 side viewing endoscope duodenoscope Sedation: MAC sedation Indication: Mrs. Denis is a 60-year-old female who had undergone cholecystectomy in July 2019 secondary to symptomatic gallstones. She did very well until 6 weeks ago when she developed right upper quadrant abdominal pain that radiates through into the back. She also has had some change in bowel habits with constipation and may skip a day without a bowel movement. She does feel some bloating. She did have CAT scan and lab work which showed normal liver chemistries and normal amylase, lipase. She also had a normal MRCP. Procedure: Prior to the procedure, a history and physical exam was performed, and patient's medications and allergies were reviewed. The risks, benefits and alternatives of the sedation and procedure were discussed with the patient. All questions were answered and informed consent was obtained. The patient was brought to the fluoroscopic radiology room. Patient identification and proposed procedure were verified by the physician and the nurse. The patient was placed in a swimmer's position between left lateral decubitus and prone position and the scope was passed under direct vision. Throughout the procedure, the patient's blood pressure, pulse, and oxygen saturations were monitored continuously. The ERCP was accomplished without difficulty. The patient tolerated the procedure well. Findings: The side-viewing duodenal scope was passed directly into the upper esophagus and advanced to the second portion of the duodenum. The esophagus, stomach and duodenum were grossly normal. The ampulla was well visualized. The pancreatic duct was cannulated and there was normal 2 to 3 mm pancreatic duct in the head of the gland. Full contrast injection of the body and tail was not performed intentionally. There was delayed drainage of bile. The needle knife was utilized to gain access and a needle-knife sphincterotomy was performed. After needle-knife sphincterotomy, there was excellent extravasation of bile. Free cannulation of the bile duct was not performed but there was excellent bile drainage after the needle knife so no further therapeutic measures were taken. There was also evidence of retained/gas stool at the hepatic flexure of the colon. The procedure was then ended. Impression: 1. 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 I would still consider treatment for the functional intestinal disorder (hepatic flexure syndrome) and I will discuss this as well.
--- NOTE | 2020-03-01 14:16 | HMH.ANESCL ---
[facility] Anesthesia Checklist - Patient Identification Patient Identification: Arm Band - Structural Data Admitted From: Home Planned Operative Procedure/s: ERCP Consent for Planned Operative Procedure(s) Verified: Yes Verified Documents: Surgical Consent, History and Physical - NPO Status Verified Time NPO: 00:00 - Additional verifications Anesthesia Reactions: No Hx Blood Transfusions: No Blood Transfusion Reaction: No - Airway Assessment C-Spine Mobility Assessed: Yes (mp2) TMJ Mobility Assessed: Yes Dentition: Good Dentition - Neurological Assessment Level of Consciousness: Awake, Alert - Anesthesia Plan Anesthesia Risk discussed: Yes Anesthesia Plan: Verified ASA Class: II Anesthesia Type: MAC [facility] History I have reviewed the patient's past medical history: Yes Medical History: Reports:: Lung Disease, Kidney Stones Denies:: Cancer, Diabetes Mellitus Type 1, Diabetes Mellitus Type 2, Internal Pacemaker, MRSA, Seizures *Have you ever received a pneumonia vaccine?: No *Have you received a flu vaccine this season?: No Other Medical History: Reports: Arthritis, Other. Denies: Blood Transfusion Reaction Anesthesia experience/problems:: nac Laterality Cases: Bilateral: Tonsillectomy Other Surgeries: Yes: Appendectomy, Cholecystectomy. No: Pacemaker Amputation: No Fractures: No - *Social History Last grade of school completed: Some college Smoking Status: Never smoker Alcohol Intake: never Alcohol Intake Frequency:: other Substance Use Type: denies use *Occupational Status:: employed Housing: house Household Members: spouse, children *Travel in the last 8 weeks: None Family Hx:: Unable to obtain
== END 2020-03-01 12:39 | disposition home or self-care (01) ==
LOC: OUTP 09:51
PROVIDERS: PCP Emergency Medicine; Visit Provider Internal Medicine Gastroenterology
PROC: (CPT 43262; principal; 2020-03-01 11:00)
DX: R10.11 Right upper quadrant pain (principal); R19.4 Change in bowel habit; Z87.442 Personal history of urinary calculi; Z90.49 Acquired absence of other specified parts of digestive tract
CPT/HCPCS: 43262; 74330

== ENCOUNTER → 2020-04-02 10:15 | Outpatient (CLI) | payer OTHER, SELFPAY ==
[2020-04-02 11:06] LABS: Basophils # 0.1 K/mm3 (0-0.2); Basophils % 0.8 % (0.1-2.0); Eosinophils # 0.1 K/mm3 (0.0-0.4); Eosinophils % 1.4 % (0.1-12.0); Hematocrit 39.5 % (37.0-47.0); Hemoglobin 12.3 g/dL (12.2-16.2); Lymphocytes # 2.9 K/mm3 (0.7-4.5); Lymphocytes % 34.4 % (10-50); Mean Corpuscular HGB Conc 31.1 g/dL (31.8-35.4); Mean Corpuscular Hemoglobin 28.7 pg (27.0-31.2); Mean Corpuscular Volume 92.2 fl (81-99); Mean Platelet Volume 7.5 fl (7.4-10.4); Monocytes # 0.6 K/mm3 (0.1-1.0); Monocytes % 6.9 % (1.7-9.3); Neutrophils # 4.8 K/mm3 (1.8-7.8); Neutrophils % 56.5 % (37.0-80.0); Platelet Count 366 K/mm3 (142-424); Red Blood Count 4.28 M/mm3 (4.20-5.40); Red Cell Distribution Width 13.6 % (11.5-17.5); White Blood Count 8.4 K/mm3 (4.8-10.8)
[2020-04-02 11:22] LABS: Chloride 103 mmol/L (98-107); Potassium 4.2 mmoL/L (3.5-5.1); Sodium 142 mmol/L (136-145)
[2020-04-02 11:25] LABS: Alanine Aminotransferase 20 U/L (12-78); Albumin Level 4.6 g/dl (3.5-5.0); Albumin/Globulin Ratio 1.4 (1.1-1.8); Alkaline Phosphatase 91 U/L (38-126); Amylase 88 U/L (30-110); Anion Gap 11.2 mEq/L (5-15); Aspartate Amino Transferase 35 U/L (14-36); Bilirubin,Total 0.4 mg/dl (0.2-1.3); Blood Urea Nitrogen 18 mg/dl (7-17); Calcium 10.2 mg/dl (8.4-10.2); Carbon Dioxide 32 mmol/L (22.0-30.0); Estimated Glomerular Filt Rate 64 ml/min (>60); GFR (African American) 77 ML/MIN (>60); Globulin 3.4 g/dL (1.3-3.2); Glucose 121 mg/dl (74-100); Lipase 185 U/L (23-300)
[2020-04-03 11:33] LABS: Hemoglobin A1C 5.5 % (4.0-6.0)
== END ==
PROVIDERS: Visit Provider Emergency Medicine
DX: R10.9 Unspecified abdominal pain (principal)
CPT/HCPCS: 36415; 80053; 82150; 83036; 83690; 85025

== ENCOUNTER → 2020-05-07 12:49 | Outpatient (CLI) | payer OTHER, SELFPAY ==
--- NOTE | 2020-05-07 12:50 | MM_ITS ---
PROCEDURE: MM DIG SC MAMM IMPLANT BI CAD Digital Breast Tomosynthesis Included CLINICAL INDICATION: screening xmg There is a history of breast cancer in the patient's sister diagnosed after menopause. The patient has bilateral implants which were implanted 20 years ago. COMPARISON: MG SCIMPBI MM Dig SC mamm implant BI CAD from 03/23/2017 MG DIG MAMM-SCREEN CELIA from 04/14/2018 MG MM DIG MAMM DX BI IMPLANT CAD from 04/20/2019 TECHNIQUE: Standard CC and MLO images and 3D Tomosynthesis was obtained. Additional Fredrick views were performed as well. R2 CAD reviewed. FINDINGS: Insert densities are seen in the [place] breast tissue. Both implants appear intact with no evidence of leakage and there are no calcifications in either implant. There is a benign-appearing calcification right breast. There is faint arterial calcification in each breast. There is no new or suspicious lesion in either breast and no suspicious microcalcifications. IMPRESSION: Stable exam with intact breast implants and no suspicious lesions seen BI-RAD Category: 2 Benign Finding(s) FOLLOW-UP: 1YR 1 Year Follow-up (A letter has been sent to the patient regarding results of the study.) Dictated by: Dr. Vladimir Isidro MD 05/10/2020 09:09 Dr. Vladimir Isidro MD in [place] 05/10/2020 09:09
== END ==
PROVIDERS: PCP Emergency Medicine; Visit Provider Nurse Practitioner Obstetrics & Gynecology
DX: Z12.31 Encounter for screening mammogram for malignant neoplasm of breast (principal)
CPT/HCPCS: 77063; 77067

== ENCOUNTER → 2020-05-18 10:08 | Outpatient (CLI) | payer OTHER, SELFPAY ==
[2020-05-18 13:48] LABS: Coronavirus 19 IgG Antibody Positive (Negative); Coronavirus 19 IgM Antibody Negative (Negative)
== END ==
PROVIDERS: Visit Provider Internal Medicine Gastroenterology
DX: Z01.818 Encounter for other preprocedural examination (principal); Z20.822 Contact with and (suspected) exposure to COVID-19; Z12.11 Encounter for screening for malignant neoplasm of colon
CPT/HCPCS: 36415; 86328

== ENCOUNTER 2020-05-20 11:28 | Day surgery (SDC) | payer OTHER, SELFPAY ==
[2020-05-14 13:31] VITALS: BMI 26.6
[2020-05-20 11:44] VITALS: BP 136/86; PULSE 75; RESP 18; TEMP 36.2; O2SAT 98
[2020-05-20 11:59] VITALS: O2SAT 97
--- NOTE | 2020-05-20 12:02 | P.PN_ITS ---
[facility] Anesthesia Checklist - Patient Identification Patient Identification: Arm Band - Structural Data Admitted From: Home Planned Operative Procedure/s: colonoscopy Consent for Planned Operative Procedure(s) Verified: Yes Verified Documents: Surgical Consent, History and Physical - NPO Status Verified Time NPO: 00:00 - Additional verifications Anesthesia Reactions: No Hx Blood Transfusions: No Blood Transfusion Reaction: No - Airway Assessment C-Spine Mobility Assessed: Yes (mp2) TMJ Mobility Assessed: Yes Dentition: Good Dentition - Neurological Assessment Level of Consciousness: Awake, Alert - Anesthesia Plan Anesthesia Risk discussed: Yes Anesthesia Plan: Verified ASA Class: I Anesthesia Type: MAC [facility] History I have reviewed the patient's past medical history: Yes Medical History: Reports:: Lung Disease, Kidney Stones Denies:: Cancer, Diabetes Mellitus Type 1, Diabetes Mellitus Type 2, Internal Pacemaker, MRSA, Seizures *Have you ever received a pneumonia vaccine?: Yes *Have you received a flu vaccine this season?: Yes Other Medical History: Reports: Arthritis, Other. Denies: Blood Transfusion Reaction Anesthesia experience/problems:: nac Laterality Cases: Bilateral: Tonsillectomy Other Surgeries: Yes: Appendectomy, Cholecystectomy. No: Pacemaker Amputation: No Fractures: No - *Social History Last grade of school completed: Some college Smoking Status: Never smoker Alcohol Intake: never Alcohol Intake Frequency:: other Substance Use Type: denies use *Occupational Status:: employed Housing: house Household Members: spouse, children *Travel in the last 8 weeks: None Family Hx:: Unable to obtain
--- NOTE | 2020-05-20 12:09 | P.PCN_ITS ---
[facility] Procedure Note Procedure Note:: Colonoscopy Procedure Report: Colonoscopy with cold snare polypectomy Endoscopist: Raul Aranda II, MD Referring physician: Juan Hernandes MD Date of Procedure: May 20, 2020 Equipment: Olympus 190 variable stiffness pediatric colonoscope Sedation: MAC sedation Indication: Mrs. Denis is a 60-year-old female who is here for diagnostic colonoscopy. The patient does have persistent right upper quadrant abdominal pressure and discomfort. She did have gallstones and underwent cholecystectomy in July 2019. She did have ERCP with ar in February 2020 and was found to have possible sphincter of Oddi dysfunction and hepatic flexure syndrome. Her CAT scan had shown a moderate amount of retained feces/fecal retention. The patient is taking the fiber bowel regimen (MiraLAX plus Metamucil). She does get some bloating. She reports no rectal bleeding, weight loss or family history of colon cancer. Her last colonoscopy was 10 years ago. She did have a normal MRCP. Procedure: Prior to the procedure, a history and physical exam was performed, and patient's medications and allergies were reviewed. The risks, benefits and alternatives of the sedation and procedure were discussed with the patient. All questions were answered and informed consent was obtained. The patient was brought to the procedure room. Patient identification and proposed procedure were verified by the physician and the nurse. The patient was placed in a left lateral decubitus position and the scope was passed under direct vision. Throughout the procedure, the patient's blood pressure, pulse, and oxygen saturations were monitored continuously. The colonoscopy was accomplished without difficulty. The patient tolerated the procedure well. Findings: On digital rectal examination there was normal rectal tone. There were no external hemorrhoids. The colonoscope was introduced through the anal canal to the rectum and advanced to the cecum. The ileocecal valve and appendiceal orifice were identified. The scope was advanced a short distance into the ileum which appeared grossly normal. The scope was then withdrawn into the colon. There were 2 colon polyps (cecum x1 (9 mm) and sigmoid x1 (3 mm)) which were both removed via cold snare polypectomy. There was some angulation at the hepatic flexure suggestive of hepatic flexure syndrome (functional intestinal disorder). There also appeared to be some very mild melanosis coli. The remaining cecum, ascending and transverse colon and mucosa were grossly normal. There were scattered diverticuli throughout the descending and sigmoid colon (LEFT colon). The rectum itself was normal. Upon retroflexion within the rectum there were grade 1-2 internal hemorrhoids. The preparation was excellent throughout with [place] Preparation Score of 9. The cecal time was 12 minutes. Impression: 1. Colonic polyps x2 2. 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 Left-sided diverticulosis 4. Mild melanosis coli 5. Grade 1-2 internal hemorrhoids Plan: I would encourage continuation of the fiber bowel regimen (combined MiraLAX plus Metamucil every morning). I would consider adding treatment for visceral sensitivity (functional abdominal pain) and would consider buspirone. We will discuss diet and treatment options. I will follow up the polyp histology. If the polyps are adenomatous (i.e. serrated adenoma), I would repeat surveillance colonoscopy again in 5 years.
[2020-05-20 12:29] VITALS: BP 96/61; PULSE 66; RESP 12; TEMP 36.3; O2SAT 97
[2020-05-20 12:39] VITALS: BP 115/71; PULSE 73; RESP 16; O2SAT 98
[2020-05-20 12:49] VITALS: BP 130/80; PULSE 64; RESP 16; O2SAT 98
[2020-05-20 12:59] VITALS: BP 139/89; PULSE 68; RESP 16; TEMP 36.3; O2SAT 97
== END 2020-05-20 13:00 | disposition home or self-care (01) ==
LOC: OUTP 11:29
PROVIDERS: PCP Emergency Medicine; Visit Provider Internal Medicine Gastroenterology
PROC: 0DJD8ZZ Inspection of Lower Intestinal Tract, Via Natural or Artificial Opening Endoscopic (ICD-10-PCS; CPT 45378; principal; 2020-05-20 12:30)
DX: Z90.49 Acquired absence of other specified parts of digestive tract (principal); K63.5 Polyp of colon; K63.89 Other specified diseases of intestine; K57.30 Diverticulosis of large intestine without perforation or abscess without bleeding; K64.0 First degree hemorrhoids; M19.90 Unspecified osteoarthritis, unspecified site; Z79.890 Hormone replacement therapy
CPT/HCPCS: 45385

== ENCOUNTER 2020-10-02 10:12 | Emergency (ER) | payer BC, SELFPAY ==
[2020-10-02 11:21] VITALS: BP 148/83; PULSE 74; RESP 20; TEMP 36.8; O2SAT 74; BMI 29.0
--- NOTE | 2020-10-02 11:21 | HMH.EDUTC ---
[facility] [place] Clinical Impression: Sinusitis Qualifiers: Sinusitis location: unspecified location Chronicity: acute Recurrence: non-recurrent Qualified Code(s): J01.90 - Acute sinusitis, unspecified Right middle ear infection Qualifiers: Otitis media type: suppurative Chronicity: acute Recurrence: non-recurrent Spontaneous tympanic membrane rupture: without spontaneous rupture Qualified Code(s): H66.001 - Acute suppurative otitis media without spontaneous rupture of ear drum, right ear Disposition: Home, Self-Care Condition on Discharge: Good Instructions: Middle Ear Infection, DI for Sinusitis Additional Instructions: Drink plenty of fluids. Take tylenol or ibuprofen for pain or fever. Take the medications as directed. Follow up with your regular doctor. GO TO THE ER FOR ANY WORSENING SYMPTOMS Quarantine until you know the results of your covid-19 test. If it is positive, the health department should call you and give you further instructions about your length of Quarantine and other thing. Prescriptions: predniSONE [Prednisone 20mg Tab] 20 mg PO BID 4 Days #8 tab Transmission Status: Received by [facility] Benzonatate [Tessalon Perle 100mg Cap] 100 mg PO TIDP PRN #30 cap PRN Reason: Cough Transmission Status: Received by [facility] Azithromycin [Z-Jeremias 250mg Tab*] 250 mg PO UD DOSE PK #6 tab Transmission Status: Received by [facility] Referrals: Juan Hernandes MD [Primary Care Provider] - Forms: Work/School Release Time of Disposition: 11:33 Medical Decision Making - Medical Records Medical records reviewed: No: I reviewed the patient's medical records. - Vicente Inquiry Pt receiving controlled substance: No Vital Signs: 10/02/20 11:21 10/02/20 11:52 Temperature 98.3 F 98.3 F Temperature Source Oral Pulse Rate 71 Pulse Rate [Left] 74 Respiratory Rate 20 20 Blood Pressure 142/85 H Blood Pressure [Right Arm] 148/83 H Blood Pressure Mean [Right Arm] 104 Blood Pressure Source [Right Arm] Automatic Cuff 02 Sat by Pulse Oximetry 74 L - Lab Data Lab results reviewed: Yes: I reviewed the patient's lab results. Lab Results 10/02/20 11:20: Strep Scn Rapid Clinic Negative 10/02/20 11:30: Chlamy pneumoniae PCR Not detected, Adenovirus (PCR) Not detected, B. pertussis DNA (PCR) Not detected, Coronavirus OC43 (PCR) Not detected, Coronavirus HKU1 (PCR) Not detected, Coronavirus 229E (PCR) Not detected, SARS-CoV-2 (PCR) Not detected, Coronavirus NL63 (PCR) Not detected, Human Metapneumovir PCR Not detected, Influenza A (H1) PCR Not detected, Influ A (H1N1/09) PCR Not detected, Influenza A (H3) PCR Not detected, Influenza Type A (PCR) Not detected, Influenza Type B (PCR) Not detected, M. pneumoniae (PCR) Not detected, Parainfluenza 1 (PCR) Not detected, Parainfluenza 2 (PCR) Not detected, Parainfluenza 3 (PCR) Not detected, Parainfluenza 4 (PCR) Not detected, RSV (PCR) Not detected, Entero/Rhino (PCR) Detected A Orders (Tests/Meds): ORDERS Category Date Time Status Strep Screen Confirmation Stat Micro 10/02/20 11:20 Received [facility] [place] - General Stated complaint: pressure behind eyes ears nose etc Time Seen by Provider: 10/02/20 11:21 - History of Present Illness Provider Complaint: She states that for the past 2 days she has had sinus pressure, scratchy sore throat and right ear pain. 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 She has been vaccinated against covid. She denies any fever/chills/body aches. - Related Data Home Medications Medication Instructions Recorded Confirmed calcium carbonate 500 mg calcium 500 mg PO BID tab 04/27/17 07/24/20 (1,250 mg) tablet multivitamin,gx-xagf-pwgwhvjk 1 tab PO DAILY 04/27/17 07/24/20 Vit A/Vit C/Vit E/Zinc/Copper 2 each PO DAILY 02/27/20 07/24/20 [Preservision Areds Softgel] buspirone 10 mg tablet 5 mg PO HS tab 03/26/20 06
[2020-10-02 11:52] VITALS: BP 142/85; PULSE 71; RESP 20; TEMP 36.8
[2020-10-02 11:53] LABS: Adenovirus,PCR Not Detected (NotDetected); Bordetella Pertussis Not Detected (NotDetected); Chlamydophila Pneumoniae, PCR Not Detected (NotDetected); Coronavirus 19, PCR Not Detected (NotDetected); Coronavirus 229E Not Detected (NotDetected); Coronavirus NL63 Not Detected (NotDetected); Coronavirus OC43 Not Detected (NotDetected); Coronovirus HKU1,PCR Not Detected (NotDetected); Human Metapneumovirus Not Detected (NotDetected); Influenza A, PCR Not Detected (NotDetected); Influenza AH1, 2009 Not Detected (NotDetected); Influenza AH1, PCR Not Detected (NotDetected); Influenza AH3,PCR Not Detected (NotDetected); Influenza B, PCR Not Detected (NotDetected); Mycoplasma Pneumoniae, PCR Not Detected (NotDetected); Parainfluenza 1, PCR Not Detected (NotDetected); Parainfluenza 2, PCR Not Detected (NotDetected); Parainfluenza 3, PCR Not Detected (NotDetected); Parainfluenza 4, PCR Not Detected (NotDetected); Respiratory Syncytial Virus Not Detected (NotDetected)
[2020-10-02 14:30] LABS: Rhinovirus/Enterovirus Detected (NotDetected)
[2020-10-02 22:37] LABS: UTC Strep Screen (Rapid) Negative (Negative)
== END 2020-10-02 11:58 | disposition home or self-care (01) ==
PROVIDERS: Emergency Provider Nurse Practitioner Family; PCP Emergency Medicine
DX: J01.90 Acute sinusitis, unspecified (principal); H66.001 Acute suppurative otitis media without spontaneous rupture of ear drum, right ear
CPT/HCPCS: 87581; 87633; 87798; 87880; 99202; G0463

== ENCOUNTER → 2020-10-08 13:04 | Outpatient (POV) | payer BC, SELFPAY | PROVIDERS: Visit Provider Dermatology | DX: Z00.00 Encounter for general adult medical examination without abnormal findings (principal) ==

== ENCOUNTER 2020-10-14 14:00 | Outpatient (RCR) | payer BC, SELFPAY | END 2020-11-12 17:00 | disposition home or self-care (01) | LOC: PT.CARL 14:00 | PROVIDERS: PCP Emergency Medicine; Visit Provider Orthopaedic Surgery Adult Reconstructive Orthopaedic Surgery | DX: M70.62 Trochanteric bursitis, left hip (principal) | CPT/HCPCS: 97014; 97033; 97035; 97110; 97163; G0283 ==

== ENCOUNTER 2021-05-20 09:00 | Outpatient (RCR) | payer BC, SELFPAY | END 2021-06-30 09:51 | disposition home or self-care (01) | LOC: PT.CARL 09:00 | PROVIDERS: PCP Emergency Medicine; Visit Provider Orthopaedic Surgery Adult Reconstructive Orthopaedic Surgery | DX: S76.012A Strain of muscle, fascia and tendon of left hip, initial encounter (principal); M76.892 Other specified enthesopathies of left lower limb, excluding foot | CPT/HCPCS: 97010; 97014; 97110; 97112; 97140; 97163; 97164; 97530; G0283 ==

== ENCOUNTER → 2021-05-20 10:43 | Outpatient (CLI) | payer BC, SELFPAY ==
--- NOTE | 2021-05-20 10:43 | MM_ITS ---
PROCEDURE INFORMATION: Exam: MG Bilateral Screening 3D Mammography Exam date and time: 05/20/2021 10:41 AM Age: 61 years old Clinical indication: Screening. Her sister had breast cancer at age 62. TECHNIQUE: Imaging protocol: Bilateral Screening tomosynthesis and 2D mammography including computer-aided detection (CAD) when performed. COMPARISON: 1. MG MM DIG SC MAMM IMPLANT BI CAD 05/07/2020 1:04 PM 2. MG MM DIG MAMM DX BI IMPLANT CAD 04/20/2019 10:29 AM 3. MG DIG MAMM-SCREEN CELIA 04/14/2018 10:16 AM 4. MG SCIMPBI MM Dig SC mamm implant BI CAD 03/23/2017 2:02 PM FINDINGS: MAMMOGRAPHY: Breast composition: The breast tissue is heterogeneously dense, which may obscure small masses. Mass: None. Architectural distortion: None. Calcifications: No suspicious calcifications. Asymmetric density: None. Skin thickening: None. Axillary adenopathy: None. Implants: Subpectoral saline implants. IMPRESSION: No mammographic evidence of malignancy. Annual screening is recommended unless otherwise clinically indicated. ASSESSMENT: BI-RADS Category 1: Negative
== END ==
PROVIDERS: PCP Emergency Medicine; Visit Provider Nurse Practitioner Obstetrics & Gynecology
DX: Z12.31 Encounter for screening mammogram for malignant neoplasm of breast (principal); Z98.82 Breast implant status
CPT/HCPCS: 77063; 77067

== ENCOUNTER → 2021-07-29 11:22 | Outpatient (CLI) | payer BC, SELFPAY ==
--- NOTE | 2021-07-29 11:25 | XR_ITS ---
FINAL REPORT CLINICAL HISTORY: PT FELL 11 DAYS AGO FINDINGS: AP PELVIS: A single view of the pelvis was obtained. There is no acute fracture or dislocation. There is mild left hip degenerative change. There is a chronic calcification superior to the left greater trochanter. Soft tissues are unremarkable. IMPRESSION: No acute process. Reviewed, Interpreted and Dictated by Artie Garcia III, MD Transcribed by Prabhjot Jefferson Authenticated and [facility]
--- NOTE | 2021-07-29 11:25 | XR_ITS ---
FINAL REPORT CLINICAL HISTORY: PT FELL 11 DAYS AGO LBP FINDINGS: SACRUM COCCYX 3 views demonstrate no acute fracture or dislocation. The sacral arches are intact. The sacroiliac joints are unremarkable. No soft tissue abnormality is seen. IMPRESSION: No acute process. Reviewed, Interpreted and Dictated by Artie Garcia III, MD Transcribed by Prabhjot Jefferson Authenticated and [facility]
--- NOTE | 2021-07-29 11:25 | XR_ITS ---
FINAL REPORT CLINICAL HISTORY: PT FELL 11 DAYS AGO, RT SIDED LBP FINDINGS: 5 views of the lumbar spine were obtained. There is no evidence of fracture or dislocation. There is mild anterolisthesis of L4 on L5. There are mild degenerative changes. There is rightward curvature. There is facet arthropathy in the lower lumbar spine. No paraspinous soft tissue abnormalities identified. IMPRESSION: Mild degenerative change with facet arthropathy in the lower lumbar spine. No acute abnormality. Reviewed, Interpreted and Dictated by Artie Garcia III, MD Transcribed by Prabhjot Jefferson Authenticated and [facility]
== END ==
PROVIDERS: PCP Emergency Medicine; Visit Provider Physician Assistant
DX: M54.50 Low back pain, unspecified (principal); W19.XXXA Unspecified fall, initial encounter
CPT/HCPCS: 72110; 72170; 72220

== ENCOUNTER → 2021-08-12 14:02 | Outpatient (CLI) | payer BC, SELFPAY ==
--- NOTE | 2021-08-12 14:02 | MR_ITS ---
FINAL REPORT CLINICAL HISTORY: fall from horse. THROWN FROM HORSE 3WEEKS AGO. BUTTOX PAIN AND TENDER TO TOUCH. PAIN WORSE ON RIGHT SIDE. PAIN WHEN LAYING DOWN. FINDINGS: Multiplanar MR images of the pelvis were performed without contrast. There is a nondisplaced acute or subacute fracture of the L3 vertebra. There is a mild partial tear of the right gluteus medius tendon. There are moderate partial tears of the left gluteus medius and minimus tendons with adjacent No bony mass is identified. There is no evidence of avascular necrosis. No significant joint effusion is seen. The musculature is intact. There is no soft tissue mass or cyst identified. IMPRESSION: Nondisplaced acute or subacute fracture of the L3 vertebra. Mild partial tear of the right gluteus medius tendon. Moderate partial tears of the left gluteus medius and minimus tendons. Reviewed, Interpreted and Dictated by Artie Garcia III, MD Transcribed by Aissatou Campbell Authenticated and [facility]
== END ==
PROVIDERS: PCP Emergency Medicine; Visit Provider Physician Assistant
DX: M53.2X8 Spinal instabilities, sacral and sacrococcygeal region (principal)
CPT/HCPCS: 72195

== ENCOUNTER 2021-10-02 10:00 | Outpatient (RCR) | payer BC, SELFPAY | END 2021-10-23 09:04 | disposition home or self-care (01) | LOC: PT.CARL 10:00 | PROVIDERS: PCP Emergency Medicine; Visit Provider Nurse Practitioner Family | DX: S32.039D Unspecified fracture of third lumbar vertebra, subsequent encounter for fracture with routine healing (principal); M54.50 Low back pain, unspecified | CPT/HCPCS: 20561; 97010; 97014; 97110; 97140; 97163; G0283 ==

== ENCOUNTER 2021-11-04 13:31 | Observation (INO) | payer BC, SELFPAY ==
[2021-11-04] VITALS (15 sets, daily range): BP systolic 123–159; BP diastolic 72–115; PULSE 69–91; RESP 16–22; TEMP 36.6–36.8; O2SAT 90–99; BMI 30.9; BMI 31.2
[2021-11-04 14:08] LABS: Microscopic, Urine URINE MICROSCOPIC (MICROSCOPIC)
[2021-11-04 14:12] LABS: Appearance,Urine CLEAR (Clear); Bilirubin,Urine Negative (Negative); Blood, Urine 3+ (Negative); Color,Urine DK YELLOW (Yellow); Glucose,Urine (UA) Negative (Negative); Ketones,Urine TRACE (Negative); Leukocyte Esterase,Urine Negative (Negative); Nitrate,Urine Negative (Negative); PH,Urine 6.5 (5.0-8.5); Protein,Urine TRACE (Negative); Urobilinogen,Urine 0.2 EU/dl (0.2)
[2021-11-04 14:18] LABS: Chloride 103 mmol/L (98-107); Potassium 4.2 mmoL/L (3.5-5.1); Sodium 142 mmol/L (136-145)
[2021-11-04 14:19] LABS: Basophils # 0.1 K/mm3 (0-0.2); Basophils % 0.9 % (0.1-2.0); Eosinophils # 0.2 K/mm3 (0.0-0.4); Eosinophils % 1.7 % (0.1-12.0); Hematocrit 46.1 % (37.0-47.0); Hemoglobin 14.6 g/dL (12.2-16.2); Lymphocytes % 36.2 % (10-50); Mean Corpuscular HGB Conc 31.7 g/dL (31.8-35.4); Mean Corpuscular Hemoglobin 29.3 pg (27.0-31.2); Mean Corpuscular Volume 92.4 fl (81-99); Mean Platelet Volume 7.6 fl (7.4-10.4); Monocytes # 0.8 K/mm3 (0.1-1.0); Monocytes % 7.3 % (1.7-9.3); Neutrophils % 53.9 % (37.0-80.0); Platelet Count 443 K/mm3 (142-424); Red Blood Count 4.99 M/mm3 (4.20-5.40); Red Cell Distribution Width 15.7 % (11.5-17.5); White Blood Count 11.1 K/mm3 (4.8-10.8)
[2021-11-04 14:21] LABS: Alanine Aminotransferase 27 U/L (12-78); Albumin Level 4.9 g/dl (3.5-5.0); Albumin/Globulin Ratio 1.4 (1.1-1.8); Alkaline Phosphatase 126 U/L (38-126); Anion Gap 15.2 mEq/L (5-15); Aspartate Amino Transferase 44 U/L (14-36); Bilirubin,Total 0.2 mg/dl (0.2-1.3); Blood Urea Nitrogen 19 mg/dl (7-17); Carbon Dioxide 28 mmol/L (22.0-30.0); Creatinine Clearance Estimated 76 mL/min (50-200); Estimated Glomerular Filt Rate 85 ml/min (>60); GFR (African American) 103 ML/MIN (>60); Globulin 3.6 g/dL (1.3-3.2); Glucose 126 mg/dl (74-100); Total Protein,Serum 8.5 g/dl (6.3-8.2)
[2021-11-04 14:30] LABS: Squamous Epithelial Cell,Urine Occasional #/hpf (0-5); WBC,Urine Occasional #/hpf (0-3)
--- NOTE | 2021-11-04 14:30 | PC.NURSE ---
pt given warm blankets
--- NOTE | 2021-11-04 14:31 | HMH.EDGENADL ---
Discharge Plan Disposition Patient Disposition: Admitted as Observation Condition: Fair Chief Complaint: PAIN Clinical Impressions Clinical Impression: Calculi, ureter Discharge ED Provider: Federico Rivera General Adult HPI General Chief complaint: PAIN Stated complaint: possible kidney stone Time Seen by Provider: 11/04/21 14:20 Mode of Arrival: Ambulatory Source of Information: Patient Limitations: No Limitations Description of Symptoms (Recalled from ER Triage Doc. by RN): to ed per pvt car with c/o lt side flank pain radiating around to llq today. +nausea and vomiting. History of Present Illness HPI narrative: Patient states that she believes she is passing a kidney stone. She says that she developed pain in her left lower quadrant inguinal area on October 09 that she suspected was a kidney stone trying to pass. She has not yet seen anybody for this, because she thought it would eventually pass. She has had persistent pain on a daily basis ever since then but it did not become severe until this afternoon. She was at a dermatology appointment when she suddenly began feeling hot and the pain became severe and she had vomiting. She has had prior kidney stones, she has had to have one extracted in the past. She sees Dr. Beard. She last had a kidney stone about 2 years ago. She has an appoint with Dr. Beard this Wednesday. No hematuria noted. Slight pressure feeling when she urinates. No fever. Related Data Home Medications Medication Instructions Recorded Confirmed calcium carbonate 500 mg calcium 500 mg PO BID Supplement 04/27/17 09/15/21 (1,250 mg) tablet (Calcium 500) multivitamin,qa-xrej-uhxqrwgr 1 tab PO DAILY Supplement 04/27/17 09/15/21 (Complete Multivitamin tablet) vitamins A,C,B-kkku-qzaqhy 14,320 2 each PO DAILY vision 02/27/20 09/15/21 unit-226 mg-200 unit capsule polyethylene glycol 3350 17 17 g PO DAILY 07/29/21 09/15/21 gram/dose oral powder (Miralax) psyllium husk 3.4 gram/5.4 gram 1 tbsp PO DAILY 07/29/21 09/15/21 oral powder (Metamucil) Previous Rx's Medication Instructions Recorded estradiol 0.01% (0.1 mg/gram) 0.5 g vaginal .twice weekly #42.5 03/07/21 vaginal cream grams Allergies Allergy/AdvReac Type Severity Reaction Status Date / Time No Known Allergies Allergy Verified 09/15/21 08:30 [facility] Social History Smoking Status: Never smoker second hand exposure: No alcohol intake: never substance use type: denies use current occupational status: employed Travel in the last 8 weeks: None household members: spouse and children housing: house current occupation: Daycare at [employer] current occupational exposures/hazards: No caffeine: Yes ROS Obtained: Yes Systems reviewed as appropriate & no additional complaints except as documented Constitutional Constitutional: Denies fever(s), Denies headache(s), Denies weakness and Reports other ([place] hot today when pain increased) ENT Ears, Nose, Mouth, and Throat: Denies headache(s), Denies nasal discharge and Denies sore throat Cardiovascular Cardiovascular: Denies chest pain Respiratory Respiratory: Denies shortness of breath and Denies cough Gastrointestinal Gastrointestingal: Reports abdominal pain, nausea and vomiting; Denies constipation or diarrhea Genitourinary Female Genitourinary: Reports as per HPI, Denies difficulty voiding, Denies dysuria, Reports flank pain and Denies hematuria Musculoskeletal Musculoskeletal: Denies numbness Neurologic Neurologic: Denies headache(s), Denies numbness and Denies weakness Physical Exam General General appearance: alert and in no apparent distress Head Head exam: atraumatic and normocephalic Eye Eye exam: Present normal appearance and EOMI ENT ENT exam: Present mucous membranes moist Neck Neck exam: Present normal inspection and trachea midline Chest Chest inspection: Present normal inspection and symmetric chest wall rise Respiratory Respir
--- NOTE | 2021-11-04 15:00 | PC.NURSE ---
pt updated on plan of care
--- NOTE | 2021-11-04 15:02 | CT_ITS ---
FINAL REPORT TECHNIQUE: Axial images through the abdomen and pelvis were performed without contrast. This study was performed with techniques to keep radiation doses as low as reasonably achievable, (ALARA). Individualized dose reduction techniques using automated exposure control or adjustment of mA and/or kV according to the patient's size were employed. CLINICAL HISTORY: N/V, r/o kidney stone FINDINGS: Abdomen: There are bilateral subglandular breast implants. There is scarring in the lung bases. The liver parenchyma is homogeneous. The gallbladder is absent. The spleen, pancreas, and adrenals are unremarkable. There is a small nonobstructing left renal stone measuring 4 mm. There is mild to moderate left hydronephrosis and hydroureter. There are at least 2 left ureteral stones. The more proximal left ureteral stone measures 5 mm. The more distal left ureteral stone measures 6 mm. Pelvis: The urinary bladder is unremarkable. The appendix is not visualized. There is no pelvic mass or inflammation. A pessary ring is present. IMPRESSION: Two obstructing left ureteral stones. Reviewed, Interpreted and Dictated by Mohamud Mccormick MD Transcribed by Prabhjot Jefferson Authenticated and [facility]
--- NOTE | 2021-11-04 15:34 | PC.NURSE ---
pt vomiting meds given
--- NOTE | 2021-11-04 16:30 | PC.NURSE ---
called nnamdi's officefor nnamdi to talk to ROSALINDA
--- NOTE | 2021-11-04 16:32 | PC.NURSE ---
ROSALINDA Speaking with Cecilio
--- NOTE | 2021-11-04 16:45 | PC.NURSE ---
contacted care management for bed
[2021-11-04 18:08] LABS: Coronavirus 19, PCR Not Detected (NotDetected); Influenza A, PCR Not Detected (NotDetected); Influenza B, PCR Not Detected (NotDetected)
--- NOTE | 2021-11-04 18:25 | PC.WOUNDNOTE ---
at bedside updated on plan of care
--- NOTE | 2021-11-04 18:46 | PC.NURSE ---
pt getting transported to the floor
[2021-11-05 04:00] VITALS: BP 141/80; PULSE 57; RESP 18; TEMP 36.8; O2SAT 96
--- NOTE | 2021-11-05 05:19 | PC.NURSE ---
NO ACUTE CHANGES SINCE PREVIOUS ASSESSMENT. PT HAS SLEPT INTERMITTENTLY THIS SHIFT. LUNG SOUNDS ARE CLEAR. PT HAS C/O ABD PAIN X2 THIS SHIFT AND WAS MEDICATED PER APR. NO C/O N/V/D. VSS. PT HAD BEEN AMBULATING TO THE BATHROOM INDEPENDENTLY. CALL [facility] WITHIN REACH.
--- NOTE | 2021-11-05 07:27 | P.CONPHA_ITS ---
[facility] Pharmacy VTE Monitoring Patient Demographics Admission date: 11/04/21 Report Date: 11/05/21 Time: 07:27 Patient Allergies No Known Allergies Allergy (Verified 09/15/21 08:30) Height: 1.63 m Weight: 82.611 kg Current Active Problems (Updated 11/04/21 @ 21:37 by Alisha Villalta RN) Calculi, ureter (Acute) VTE Risk Labs: VTE Related Lab Results Hgb 14.6 g/dL (12.2-16.2) 11/04/21 13:50 Hct 46.1 % (37.0-47.0) 11/04/21 13:50 Plt Count 443 K/mm3 (142-424) H 11/04/21 13:50 BUN 19 mg/dl (7-17) H 11/04/21 13:50 Creatinine 0.70 mg/dl (0.52-1.04) 11/04/21 13:50 Estimated Creat Clear 76 mL/min (50-200) 11/04/21 13:50 Was VTE Risk Assessment Performed: Yes VTE Score: 3 VTE Risk Level: Low Risk Prophylaxis VTE Prophylaxis Ordered?: Yes Types of VTE Prophylaxis: TEDS Knee High Location of Applied Device: Bilateral Lower Extremeties
--- NOTE | 2021-11-05 07:45 | HMH.PHAINT1 ---
Pharmacy Intervention Comments: MEDICATION RECONCILIATION COMPLETED ON PATIENT USING EXTERNAL FILL HISTORY FROM PHARMACY. -DINORAH ELIAS, FAINAD
[2021-11-05 08:00] VITALS: BP 135/73; PULSE 68; RESP 17; TEMP 37.2; O2SAT 92
--- NOTE | 2021-11-05 10:39 | EXP.HPDC ---
General Admission date:: 11/04/21 *Admission Date: 11/04/21 *Chief complaint: L Flank Pain *History of present illness: Patient states that she believes she is passing a kidney stone.? She says that she developed pain in her left lower quadrant inguinal area on October 09 that she suspected was a kidney stone trying to pass.? She has not yet seen anybody for this, because she thought it would eventually pass.? She has had persistent pain on a daily basis ever since then but it did not become severe until this afternoon.? She was at a dermatology appointment when she suddenly began feeling hot and the pain became severe and she had vomiting.? She has had prior kidney stones, she has had to have one extracted in the past.? She sees Dr. Beard.? She last had a kidney stone about 2 years ago.? She has an appoint with Dr. Beard this Wednesday.? No hematuria noted.? Slight pressure feeling when she urinates.? No fever (per Dr. Rivera). [facility] Medical History (Updated 11/04/21 @ 21:37 by Alisha Villalta RN) Allergies Bladder prolapse Gallbladder disease Kidney stone Menopause Skin cancer Vertebral fracture Surgical History (Updated 11/04/21 @ 21:37 by Alisha Villalta RN) History of appendectomy History of cholecystectomy History of tonsillectomy Family History (Updated 11/04/21 @ 21:37 by Alisha Villalta, RN) Other Family history of COPD (chronic obstructive pulmonary disease) Family history of TIAs Family history of arthritis Family history of cancer Family history of cataracts Family history of diabetes mellitus type II Family history of hyperlipidemia Family history of hypertension Family history of macular degeneration Lung cancer Social History (Updated 11/04/21 @ 21:39 by Alisha Villalta RN) Smoking Status: Never smoker second hand exposure: No alcohol intake: never substance use type: denies use current occupational status: employed Travel in the last 8 weeks: None household members: spouse and children housing: house current occupation: Daycare at [employer] current occupational exposures/hazards: No caffeine: Yes Review of Systems Constitutional Constitutional: Reports system reviewed and no additional complaints, except as documented, Denies headache(s) and Denies weakness Eyes Eyes: Reports system reviewed and no additional complaints, except as documented ENT Ears, Nose, Mouth, and Throat: Reports system reviewed and no additional complaints, except as documented and Denies headache(s) *Cardiovascular Cardiovascular: Reports system reviewed and no additional complaints, except as documented *Respiratory Respiratory: Reports system reviewed and no additional complaints, except as documented *Gastrointestinal Gastrointestinal: Reports system reviewed and no additional complaints, except as documented *Genitourinary Genitourinary: Reports dysuria, Reports pelvic pain and Reports other (L Flank pain) *Musculoskeletal Musculoskeletal: Denies numbness *Neurologic Neurologic: Reports system reviewed and no additional complaints, except as documented, Denies confusion, Denies headache(s), Denies numbness and Denies weakness Psychiatric Psychiatric: Reports system reviewed and no additional complaints, except as documented and Denies confusion Endocrine Endocrine: Reports system reviewed and no additional complaints, except as documented Hematologic/Lymphatic Hematologic/Lymphatic: Reports system reviewed and no additional complaints, except as documented Allergic/Immunologic Allergic/Immunologic: Reports system reviewed and no additional complaints, except as documented Exam Data for Last 24 hours Vital signs and Labs for Last 24 Hours: Temp Pulse Resp BP Pulse Ox 98.9 F 68 17 135/73 92 L 11/05/21 08:00 11/05/21 08:00 11/05/21 08:00 11/05/21 08:00 11/05/21 08:00 Laboratory Results - last 24 hr 11/04/21 13:27: Urine Color Dk yellow, Urine Appearance Clear, Urine pH
--- NOTE | 2021-11-05 11:45 | PC.NURSE ---
Called Report to Zonia at ER
--- NOTE | 2021-11-05 12:04 | PC.NURSE ---
Verified with pt that she did not bring any at home medications. I placed shoes, and folder in a bag. I placed her phone search marketing specialist in her purse. Both bags were given to EMS at D/C.
== END 2021-11-05 12:04 | disposition short-term general hospital (02) ==
LOC: ER 14:11 → 2ND 17:14
PROVIDERS: Admitting Provider Emergency Medicine; Emergency Provider Emergency Medicine; PCP Emergency Medicine; Visit Provider Emergency Medicine
DX: N23 Unspecified renal colic (principal); N20.1 Calculus of ureter; Z79.899 Other long term (current) drug therapy; Z79.890 Hormone replacement therapy
CPT/HCPCS: 74176; 80053; 81001; 85025; 99285; C9803; G0378; J2405; U0003; U0005

== ENCOUNTER → 2021-12-09 08:50 | Outpatient (POV) | payer BC, SELFPAY | PROVIDERS: Visit Provider Dermatology | DX: Z00.00 Encounter for general adult medical examination without abnormal findings (principal) ==

== ENCOUNTER 2022-04-30 10:00 | Outpatient (RCR) | payer BC, SELFPAY | END 2022-06-08 10:20 | disposition home or self-care (01) | LOC: PT 10:00 | PROVIDERS: PCP Emergency Medicine; Visit Provider Orthopaedic Surgery | DX: M75.41 Impingement syndrome of right shoulder (principal) | CPT/HCPCS: 97010; 97014; 97033; 97035; 97110; 97140; 97163; G0283 ==

== ENCOUNTER 2022-09-28 10:00 | Outpatient (RCR) | payer BC, SELFPAY | END 2022-10-08 11:55 | disposition home or self-care (01) | LOC: PT 10:00 | PROVIDERS: PCP Emergency Medicine; Visit Provider Orthopaedic Surgery | DX: Z98.890 Other specified postprocedural states (principal); M25.511 Pain in right shoulder | CPT/HCPCS: 97010; 97014; 97110; 97140; 97163; 97164; 97530; G0283 ==

== ENCOUNTER → 2022-10-15 10:44 | Outpatient (CLI) | payer BC, SELFPAY ==
--- NOTE | 2022-10-15 10:44 | MM_ITS ---
PROCEDURE INFORMATION: Exam: MG Bilateral Screening 3D Mammography Exam date and time: 10/15/2022 10:46 AM Age: 62 years old Clinical indication: Screening examination TECHNIQUE: Imaging protocol: Bilateral Screening tomosynthesis and 2D mammography including computer-aided detection (CAD) when performed. COMPARISON: 1. MG MM DIG SC MAMM IMPLANT BI CAD 05/20/2021 10:41 AM 2. MG MM DIG SC MAMM IMPLANT BI CAD 05/07/2020 1:04 PM FINDINGS: MAMMOGRAPHY: Breast composition: There are scattered areas of fibroglandular density. Mass: None. Architectural distortion: None. Calcifications: No suspicious calcifications. Asymmetric density: None. Skin thickening: None. Axillary adenopathy: None. IMPRESSION: No mammographic evidence of malignancy. Annual screening is recommended unless otherwise clinically indicated. ASSESSMENT: BI-RADS Category 1: Negative
== END ==
PROVIDERS: PCP Emergency Medicine; Visit Provider Nurse Practitioner Obstetrics & Gynecology
DX: Z12.31 Encounter for screening mammogram for malignant neoplasm of breast (principal)
CPT/HCPCS: 77062; 77063; 77066; 77067; G0279

== ENCOUNTER → 2022-11-17 08:06 | Outpatient (POV) | payer BC, SELFPAY | PROVIDERS: Visit Provider Dermatology | DX: Z00.00 Encounter for general adult medical examination without abnormal findings (principal) ==